=== PATIENT | male | born 1965 | race African-American/Black ===

== ENCOUNTER 2017-06-24 09:30 | Emergency (ER) | payer SELFPAY | END 2017-06-24 10:30 | disposition home or self-care (01) | LOC: ERS 09:30 | DX: J40 Bronchitis, not specified as acute or chronic (principal); I10 Essential (primary) hypertension; J44.9 Chronic obstructive pulmonary disease, unspecified; Z87.891 Personal history of nicotine dependence | CPT/HCPCS: 99283 ==

== ENCOUNTER 2017-07-27 11:48 | Emergency (ER) | payer SELFPAY | END 2017-07-27 12:54 | disposition home or self-care (01) | LOC: ERS 11:48 | DX: M79.89 Other specified soft tissue disorders (principal); J45.909 Unspecified asthma, uncomplicated; I10 Essential (primary) hypertension; Z87.891 Personal history of nicotine dependence | CPT/HCPCS: 36416; 99283 ==

== ENCOUNTER 2017-08-16 02:47 | Inpatient (IN) | payer SELFPAY ==
[2017-08-16] MEDS ORDERED: methylPREDNISolone Sod Succ/PF 125 MG/2 ML VIAL ONE (02:59)
[2017-08-16 03:37] LABS: #Eosinphils 0.1 thou/uL (0.0-0.7); #Lymphocytes 0.5 thou/uL (1.20-3.40); #Monocytes 0.7 thou/uL (0.11-0.59); #Neutrophils 8.2 thou/uL (1.40-6.50); %Basophils 0.2 % (0.0-1.0); %Eosinophils 1.1 % (0.0-10.0); %Lymphocytes 5.6 % (21.0-51.0); %Monocytes 7.2 % (0.0-10.0); Hemoglobin 14.2 g/dL (14.0-18.0); Mean Corpuscular HGB CONC 32.3 g/dL (32.0-36.0); Mean Corpuscular Hemoglobin 28.2 pg (27.0-31.0); Mean Corpuscular Volume 87.3 fl (80.0-94.0); Mean Platelet Volume 6.4 fL (7.4-10.4); Platelet Count 248 thou/uL (130-400); RBC Distribution Width 13.1 % (11.5-14.5); Red Blood Cell (RBC) Count 5.04 mill/uL (4.70-6.10); White Blood Cell (WBC) Count 9.5 thou/uL (4.8-10.8)
[2017-08-16] MEDS ORDERED: Magnesium Sulfate 2 GM/100 ML BAG ONE (03:51)
[2017-08-16 04:00] LABS: ALT (SGPT) 53 U/L (8-55); AST (SGOT) 25 U/L (5-34); Albumin 4.4 g/dL (3.5-5.0); Alkaline Phosphatase 106 U/L (40-150); Anion Gap 16 mmol/L (10-20); BUN (Urea Nitrogen) 6 mg/dL (8.4-25.7); Bilirubin, Total 0.4 mg/dL (0.2-1.2); CK (CPK) 274 U/L (30-200); Calc. Creatinine Clearance 0 mL/min (70-130); Calcium 10.1 mg/dL (7.8-10.44); Carbon Dioxide 25 mmol/L (22-29); Chloride 101 mmol/L (98-107); Estimated GFR-MDRD Greater than 90; Globulin 3.2 g/dL (2.4-3.5); Glucose 134 mg/dL (70-105); Potassium 3.8 mmol/L (3.5-5.1); Protein, Total 7.6 g/dL (6.0-8.3); Sodium 138 mmol/L (136-145)
[2017-08-16 04:04] LABS: CKMB 4.9 ng/mL (0-6.6); Troponin I Less than 0.010 ng/mL (< 0.028)
[2017-08-16] MEDS ORDERED: cefTRIAXone\\ROCEPHIN 2 GM in Sodium Chloride 0.9% 100 ML IVPB SCH (04:30)
[2017-08-16] MEDS ORDERED: Azithromycin 500 MG in Sodium Chloride 0.9% 250 ML 250 ML IVPB SCH (04:30)
[2017-08-16] MEDS ORDERED: Ondansetron HCl/PF 4 MG/2 ML Vial IVP PRN (08:25)
[2017-08-16] MEDS ORDERED: Acetaminophen 325 MG TAB PO PRN (08:25)
[2017-08-16] MEDS ORDERED: Lorazepam 2 MG/ML VIAL SLOW IVP PRN (08:25)
[2017-08-16] MEDS ORDERED: Benzonatate 100 MG CAP PO PRN (08:25)
[2017-08-16] MEDS ORDERED: Midazolam HCl 5 mg/ml Vial ONE (08:33)
[2017-08-16] MEDS ORDERED: Rocuronium Bromide 50 MG/5 ML VIAL ONE (08:33)
[2017-08-16] MEDS ORDERED: CCU Electrolyte Replacement 1 EACH FS ONE (08:59)
[2017-08-16] MEDS ORDERED: Sedation Protocol FS ONE (08:59)
[2017-08-16 09:07] LABS: Base Excess (BEa) -4.2 mEq/L (0 (+/-) 2.5); Calcium, Ionized 1.2 mmol/L (1.12-1.30); Hematocrit-ABG 43.8 % (42.0-52.0); Hemoglobin (Hb) 13.2 g/dL (14.0-18.0); O2 Tension (PaO2) 309.3 mmHg (80.0-100.0)
--- NOTE | 2017-08-16 09:07 | RAD ---
FRONTAL VIEW CHEST: COMPARISON: 09/23/16. INDICATION: Dyspnea. Asthma exacerbation. FINDINGS: There is a left perihilar consolidation with bilateral interstitial prominence and slight hyperinflat ion of the lungs. Cardiac silhouette is normal in size. There are numerous extrinsic artifacts limi ting detail. IMPRESSION: Evidence of left perihilar pneumonia. Followup to resolution is recommended. POS: [facility]
[2017-08-16 09:12] LABS: CO2 Tension 66.1 mmHg (35.0-45.0); Puncture Site L.R.
[2017-08-16 09:13] LABS: ALV-art Gradient 319.075 (0-20)
[2017-08-16] MEDS ORDERED: Magnesium 2 GM/NS 0.9% 100 ML 2 GM in Premix Bag 1 BAG IVPB PRN (09:17)
[2017-08-16] MEDS ORDERED: Potassium Phosphate 15 MMOL in Sodium Chloride 0.9% 250 ML 250 ML IV PRN (09:17)
[2017-08-16] MEDS ORDERED: Potassium Phosphate 9 MMOL in Sodium Chloride 0.9% 100 ML IVPB PRN (09:17)
[2017-08-16] MEDS ORDERED: Potassium Chloride 20 MEQ TAB PO PRN (09:17)
[2017-08-16] MEDS ORDERED: Potassium Chloride 40 MEQ in Premix Bag 1 BAG IVPB PRN (09:17)
[2017-08-16] MEDS ORDERED: CCU ELECTROLYTE REPLACEMENT PROTOCOL FS PRN (09:17)
[2017-08-16] MEDS ORDERED: fentaNYL Citrate/PF 2,000 MCG in Sodium Chloride 0.9% 60 ML IV SCH (09:17)
[2017-08-16] MEDS ORDERED: Potassium Phosphate 12 MMOL in Sodium Chloride 0.9% 250 ML 250 ML IV PRN (09:17)
[2017-08-16] MEDS ORDERED: Potassium Chloride 40 MEQ in Sodium Chloride 0.9% 250 ML 250 ML IVPB PRN (09:17)
[2017-08-16] MEDS ORDERED: Magnesium Oxide 400 MG TAB PO PRN ×2 (09:17)
[2017-08-16] MEDS ORDERED: Propofol 1,000 MG/100 ML VIAL IV ONE ×2 (09:20→11:24)
--- NOTE | 2017-08-16 09:36 | HP ---
PRIMARY CARE PHYSICIAN: Dr. Mcintosh at [facility]. CHIEF COMPLAINT: Shortness of breath. HISTORY OF PRESENT ILLNESS: The history of present illness was taken almost entirely from the patien destinee's who is at the bedside as the patient is so short of breath. He can barely even say one word . She says that he began having shortness of breath about 2 days ago on Monday, he began wheezing an d coughing up phlegm. She says he was not paying attention to the color of the phlegm. She had take n him to see their primary care physician who treated him and apparently treated him and sent him rupal e. Since then, he has gotten more progressively short of breath. There have been no fevers or chill s. No nausea or vomiting or chest pain, but when he came to the ER, he was found to be extremely dys pneic and hypoxic with an O2 sat of 83% on room air. He has gotten nebulizer treatments, antibiotics , and magnesium as well as IV steroids and has been placed on BiPAP and currently on BiPAP he appears very uncomfortable and has excessive work of breathing. REVIEW OF SYSTEMS: Unobtainable as the patient is in too much discomfort with shortness of breath to reply. PAST MEDICAL HISTORY: Significant for chronic obstructive pulmonary disease with chronic respiratory failure, asthma, hypertension, history of noncompliance. PAST SURGICAL HISTORY: He has had finger surgery on the right. ALLERGIES: No known drug allergies. SOCIAL HISTORY: He is . He continues to smoke according to his , occasionally drinks. Jack taylor wishes to be a FULL CODE. FAMILY HISTORY: Significant for diabetes mellitus in his brother as well as cancer. MEDICATIONS: Include albuterol inhaler. He had been prescribed Dulera, but says it was too expensiv e for him to pay for it. PHYSICAL EXAMINATION: GENERAL: He is oriented, but extremely short of breath. VITAL SIGNS: Blood pressure is ranging from 140s-170s systolic, heart rate is in the 115 range, resp iratory rate of 22. He is afebrile. HEENT: His pupils are equal, round, and reactive. Extraocular muscles are intact. His sclerae are anicteric. Throat no erythema, no exudates. NECK: No adenopathy. LUNGS: He has got bilateral wheezing and extremely tight wheezing, very poor air movement. CARDIOVASCULAR: He has a normal S1 and S2. I do not appreciate an S3 or S4. He is tachycardic. No murmurs appreciated. ABDOMEN: Soft, nontender, nondistended. Positive for bowel sounds. No rebound or guarding. EXTREMITIES: There is no edema. NEUROLOGIC: Appears grossly intact. LABORATORY DATA: Sodium 138, potassium 3.8, chloride is 101, CO2 is 25, BUN is 6, creatinine 0.65, g lucose is 134. Lactic acid is 3.8, creatinine kinase 274. White blood cell count 9.5, hemoglobin 14 .2, hematocrit is 44, and platelet count is 248. ASSESSMENT AND PLAN: This is a 52-year-old gentleman that presents with acute on chronic respiratory failure with hypoxemia. He is currently on bilevel positive airway pressure. He does not appear to be comfortable currently. Therefore, we will get a stat ABG as well as give him a DuoNeb now. I headley ve spoken with Dr. Moy on the phone, who plans to see him shortly. We will continue DuoNebs, wicho roids, and IV antibiotics empirically for COPD exacerbation. Place him on deep venous thrombosis and gastrointestinal prophylaxis and monitor him closely. If he does not turn the corner soon, I suspec t that he may require mechanical ventilation.
--- NOTE | 2017-08-16 10:13 | RAD ---
CHEST 1 VIEW: Date: 08/16/17 HISTORY: Dyspnea. Chest pain. COMPARISON: Earlier exam same date. FINDINGS: Cardiac silhouette is unremarkable. Pulmonary vasculature is upper limits of normal. Left perihilar i nfiltrate is less dense than on the previous exam. Tip of endotracheal catheter projects over the thoracic inlet. Nasogastric tube descends to the abdom en. IMPRESSION: 1. Endotracheal catheter and nasogastric tube are in good radiographic position. 2. Interval decrease in left perihilar infiltrate. POS: [facility]
--- NOTE | 2017-08-16 10:29 | CON ---
DATE OF CONSULTATION: 08/16/2017 CONSULTING PHYSICIAN: Dr. Mercedes. REASON FOR CONSULTATION: Acute respiratory failure related to asthma exacerbation. Following [facility] 45 minutes critical care time. HISTORY OF PRESENT ILLNESS: Mr. Lizarraga is a 52-year-old male with a history of asthma. He has had inc reasing symptoms over the last 1 week. He has been out of his usual home medications, which were Dul era and albuterol. He has been unable to afford Dulera and has been occasionally coming to the [facility] for samples of the medication. His family states he is continuing to smoke tobacco and marijuana. PAST MEDICAL HISTORY: 1. Severe COPD/asthma. 2. Status asthmaticus. 3. Hypertension. 4. Medical noncompliance. PAST SURGICAL HISTORY: Right finger surgery. MEDICATIONS PRIOR TO ADMISSION: See above. ALLERGIES: None. FAMILY MEDICAL HISTORY: Remarkable for colon cancer. SOCIAL HISTORY: He has a long smoking history and a history of marijuana use. REVIEW OF SYSTEMS: Cannot be obtained as the patient is on mechanical ventilation. PHYSICAL EXAMINATION: VITAL SIGNS: Heart rate is around 115, blood pressure 170/90, respiratory rate 14. GENERAL: This patient was in profound respiratory distress when I entered into the room. He had aud ible expiratory wheezing. He cannot talk, because he was so dyspneic. HEENT EXAM: Pupils react, sclerae anicteric. Oropharynx dry. NECK: No JVD. LUNGS: Diffuse expiratory wheezing bilaterally with accessory muscle use of the neck and abdomen. CARDIOVASCULAR: S1, S2 tachycardic. No murmur. ABDOMEN: Soft, protuberant. Normoactive bowel sounds. EXTREMITIES: No clubbing, cyanosis, or edema. NEUROLOGIC EXAM: Moves all 4 extremities. LABORATORY AND X-RAY FINDINGS: His flu swab was negative. White blood cell count 9.5, hematocrit 44 , platelet count 248. Sodium 130, potassium 3.8, chloride 101, CO2 of 25, BUN 6, creatinine 0.6, glu cose 134. Lactate 3.8. Chest x-ray showed hyperinflation without mass, effusion, or infiltrate. Hi s peak pressures on the ventilator are running around 68, plateau pressure is around 25. ASSESSMENT: 1. Status asthmaticus. 2. Acute respiratory failure, requiring mechanical ventilation. PLAN: 1. The patient necessitated emergent endotracheal intubation. This was performed by Dr. Arlene Nunez with my direct supervision on first attempt with 7.5 endotracheal tube with GlideScope visualization. The patient was given 50 mg, Zemuron 2 mg of Versed prior to the intubation. End-tidal CO2 turned yellow and placement was also confirmed by auscultation and x-ray. 2. Patient will receive IV steroids, aggressive nebulization therapy, and antibiotics. 3. The patient will be kept heavily sedated and paralyzed to facilitate compliance, mechanical venti lation. 4. Mechanical ventilation orders in the computer. 5. Deep venous prophylaxis with Lovenox. 6. Gastrointestinal prophylaxis with Protonix or Pepcid.
[2017-08-16 11:48] LABS: Bilirubin Negative (Negative); Blood, Urine Negative (Negative); Clarity CLEAR (Clear); Glucose, Urine (Dipstick) 250 mg/dL (Negative); Leukocyte Negative (Negative); Nitrite Negative (Negative); Protein, Urine (Dipstick) Negative (Neg-Trace); Specific Gravity, Urine 1.013 (1.002-1.036); Urobilinogen 0.2 mg/dL (0.2-1.0)
[2017-08-16] MEDS: Lorazepam 2 MG/ML VIAL SLOW IVP PRN ×3 (12:00→19:30)
[2017-08-16] MEDS: Docusate 100 MG CAP PO SCH ×2 (13:04→20:25)
[2017-08-16] MEDS: Nicotine 14 MG PATCH TD SCH (13:22)
[2017-08-16] MEDS: Enoxaparin Sodium 40 MG/0.4 ML SYRINGE SC SCH (13:22)
[2017-08-16] MEDS: Famotidine/PF 20 mg/2ml Vial SLOW IVP SCH ×2 (13:24→20:25)
[2017-08-16] MEDS: Propofol 1,000 MG/100 ML VIAL IV PRN ×3 (14:06→22:35)
[2017-08-16] MEDS: Morphine 2 MG/ML SYRINGE SLOW IVP PRN ×2 (14:18→22:35)
[2017-08-16] MEDS: Sodium Chloride 0.9% 1,000 ML IV SCH ×2 (16:47→17:46)
[2017-08-17] MEDS: Sodium Chloride 0.9% 1,000 ML IV SCH ×4 (00:08→23:35)
[2017-08-17] MEDS: Lorazepam 2 MG/ML VIAL SLOW IVP PRN ×3 (01:27→20:06)
[2017-08-17] MEDS: Propofol 1,000 MG/100 ML VIAL IV PRN ×5 (02:27→20:06)
[2017-08-17] MEDS: Azithromycin 500 MG in Sodium Chloride 0.9% 250 ML 250 ML IVPB SCH (05:02)
[2017-08-17] MEDS: cefTRIAXone\\ROCEPHIN 2 GM in Sodium Chloride 0.9% 100 ML IVPB SCH (05:02)
[2017-08-17 06:04] LABS: #Lymphocytes 0.4 thou/uL (1.20-3.40); #Monocytes 0.4 thou/uL (0.11-0.59); #Neutrophils 6.1 thou/uL (1.40-6.50); %Basophils 0.6 % (0.0-1.0); %Eosinophils 0.3 % (0.0-10.0); %Lymphocytes 5.5 % (21.0-51.0); %Monocytes 5.6 % (0.0-10.0); %Neutrophils 87.9 % (42.0-75.0); Hemoglobin 11.4 g/dL (14.0-18.0); Mean Corpuscular HGB CONC 30.4 g/dL (32.0-36.0); Mean Corpuscular Hemoglobin 27.4 pg (27.0-31.0); Mean Corpuscular Volume 90.2 fl (80.0-94.0); Mean Platelet Volume 6.6 fL (7.4-10.4); Platelet Count 202 thou/uL (130-400); RBC Distribution Width 13.2 % (11.5-14.5); Red Blood Cell (RBC) Count 4.15 mill/uL (4.70-6.10); White Blood Cell (WBC) Count 6.9 thou/uL (4.8-10.8)
[2017-08-17 06:27] LABS: Anion Gap 9 mmol/L (10-20); BUN (Urea Nitrogen) 10 mg/dL (8.4-25.7); Calc. Creatinine Clearance 172 mL/min (70-130); Calcium 8.3 mg/dL (7.8-10.44); Carbon Dioxide 28 mmol/L (22-29); Chloride 107 mmol/L (98-107); Estimated GFR-MDRD Greater than 90; Glucose 140 mg/dL (70-105); Potassium 4.5 mmol/L (3.5-5.1); Sodium 139 mmol/L (136-145)
[2017-08-17 07:02] LABS: Actual Bicarbonate (HCO3a) 30.5 mEq/L (22-26); Base Excess (BEa) 1.1 mEq/L (0 (+/-) 2.5); Calcium, Ionized 1.2 mmol/L (1.12-1.30); Hematocrit-ABG 38.8 % (42.0-52.0); Hemoglobin (Hb) 11.4 g/dL (14.0-18.0); O2 Tension (PaO2) 83.7 mmHg (80.0-100.0)
[2017-08-17 07:05] LABS: CO2 Tension 76.6 mmHg (35.0-45.0); Puncture Site RRA; pH, Arterial 7.22 (7.35-7.45)
[2017-08-17] MEDS: Nicotine 14 MG PATCH TD SCH (09:12)
[2017-08-17] MEDS: Famotidine/PF 20 mg/2ml Vial SLOW IVP SCH ×2 (09:13→20:06)
[2017-08-17] MEDS: Docusate 100 MG CAP PO SCH ×2 (09:13→20:06)
[2017-08-17] MEDS: Enoxaparin Sodium 40 MG/0.4 ML SYRINGE SC SCH (09:13)
--- NOTE | 2017-08-17 10:57 | PDOC.PN ---
- Subjective Encounter Start Date: 08/17/17 Encounter Start Time: 07:15 Subjective: on vent and sedated -: at bedside - Objective Resuscitation Status: Resuscitation Status FULL:Full Resuscitation MAR Reviewed: Yes Vital Signs & Weight: Vital Signs (12 hours) Temp Pulse Resp BP Pulse Ox 08/17/17 10:03 107 H 105/57 L 08/17/17 10:00 14 08/17/17 08:13 93 107/66 08/17/17 08:00 99.3 F 93 18 100 08/17/17 07:00 99.3 F 08/17/17 06:00 14 08/17/17 04:00 98.6 F 14 08/17/17 03:12 96 14 100 08/17/17 02:00 14 08/17/17 00:39 99 17 96 08/17/17 00:00 99.1 F 14 Most Recent Monitor Data Heart Rate from ECG 107 NIBP 105/57 NIBP BP-Mean 70 Respiration from ECG 14 SpO2 100 I&O: 08/16/17 08/17/17 08/18/17 06:59 06:59 06:59 Intake Total 3658 Output Total 1665 255 Balance 1992 -255 Result Diagrams: 08/17/17 05:16 08/17/17 05:16 Phys Exam - Physical Examination HEENT: PERRLA, sclera anicteric Neck: no JVD, supple Respiratory: no rales, wheezing present Cardiovascular: RRR, no rub Gastrointestinal: soft, non-tender, positive bowel sounds large inguinal hernia Musculoskeletal: no edema, pulses present Neurological: non-focal Dx/Plan (1) Acute respiratory failure with hypoxia and hypercapnia Code(s): J96.01 - ACUTE RESPIRATORY FAILURE WITH HYPOXIA; J96.02 - ACUTE RESPIRATORY FAILURE WITH HYPERCAPNIA Status: Acute (2) Status asthmaticus Code(s): J45.902 - UNSPECIFIED ASTHMA WITH STATUS ASTHMATICUS Status: Acute Qualifiers: Asthma severity: unspecified severity (3) HTN (hypertension) Code(s): I10 - ESSENTIAL (PRIMARY) HYPERTENSION Status: Chronic Qualifiers: Hypertension type: essential hypertension (4) Inguinal hernia Code(s): K40.90 - UNIL INGUINAL HERNIA, W/O OBST OR GANGR, NOT SPCF RECUR Status: Chronic Qualifiers: Obstruction and gangrene presence: without obstruction or gangrene Comment: its a large one, will need outpt repair once his copd stabilizes (5) Tobacco abuse Code(s): Z72.0 - TOBACCO USE Status: Chronic - Plan is still acidotic, resp rate changed to 18 this am -: repeat blood gas in 3 hrs -: is still wheezing -: d/w at bedside -: nebs, high dose steroids iv, empiric ceftriaxone and zithromax * . Review of Systems - Medications/Allergies Allergies/Adverse Reactions: Allergies Allergy/AdvReac Type Severity Reaction Status Date / Time No Known Drug Allergies Allergy Verified 09/21/16 02:50 Medications: Current Medications Acetaminophen (Tylenol) 650 mg PO Q4H PRN PRN Reason: Headache/Fever or Pain Albuterol/Ipratropium (Duoneb) 3 ml NEB [id number] [facility] Last Admin: 08/17/17 10:07 Dose: 3 ml Benzonatate (Tessalon) 100 mg PO Q4H PRN PRN Reason: Cough Docusate Sodium (Colace) 100 mg PO BID [facility] Last Admin: 08/17/17 09:13 Dose: 100 mg Enoxaparin Sodium (Lovenox) 40 mg SC 0900 [facility] Last Admin: 08/17/17 09:13 Dose: 40 mg Famotidine (Pepcid) 20 mg SLOW IVP Q12HR [facility] Last Admin: 08/17/17 09:13 Dose: 20 mg Hydralazine HCl (Apresoline) 10 mg SLOW IVP Q4H PRN PRN Reason: Systolic BP > 180 Azithromycin 500 mg/ Sodium (Chloride) 250 mls @ 250 mls/hr IVPB 0600 [facility] Last Admin: 08/17/17 05:02 Dose: 250 mls Ceftriaxone Sodium 2 gm/ (Sodium Chloride) 100 mls @ 200 mls/hr IVPB 0500 [facility] Last Admin: 08/17/17 05:02 Dose: 100 mls Potassium Chloride 40 meq/ (Sodium Chloride) 270 mls @ 135 mls/hr IVPB ASDIR PRN PRN Reason: FOR SERUM K+ 2.5 - 3.5 Potassium Chloride 40 meq/ (Device) 100 mls @ 50 mls/hr IVPB ASDIR PRN PRN Reason: FOR SERUM K+ 2.5 - 3.5 Magnesium Sulfate 1 gm/ Sodium (Chloride) 102 mls @ 102 mls/hr IV PRN PRN PRN Reason: MAG LEVEL 1.4 - 2.0 Magnesium Sulfate 2 gm/ Device 100 mls @ 100 mls/hr IVPB ASDIR PRN PRN Reason: MAGNESIUM < 1.4 Potassium Phosphate 9 mmol/ (Sodium Chloride) 103 mls @ 25.75 mls/hr IVPB ASDIR PRN PRN Reason: Phosphate 1.0-1.8 Potassium Phosphate 12 mmol/ (Sodium Chloride) 254 mls @ 63.5 mls/hr IV ASDIR PRN PRN Reason: Serum phosphate 0.5-0.9 Potassium Phosphate 15 mmol/ (Sodium Chloride) 255 mls @ 63.75 mls/hr IV ASDIR PRN PRN Reason: Serum Phos < 0.5 Fentanyl Citrate 2,000 mcg/ (Sodium Chloride) 100 mls @ 0 mls/hr IV INF DOMINIC; Per Protocol PRN Reason: Protocol Stop: 09/15/17 09:17 Fentanyl Citrate (Fentanyl Bolus) 250 mls @ 0 mls/hr IVPB PRN PRN; As Directed PRN Reason: Breakthrough pain Stop: 09/15/17 09:17 Sodium Chloride (Normal Saline 0.9%) 1,000 mls @ 150 mls/hr IV .Q6H40M [facility] Last Admin: 08/17/17 09:18 Dose: 1,000 mls Lorazepam (Ativan) 0.5 mg SLOW IVP Q4H PRN PRN Reason: Anxiety/Agitation Lorazepam (Ativan) 2 mg SLOW IVP Q2H PRN PRN Reason: Anxiety to achieve Smith 2-3 Stop: 09/15/17 09:17 Last Admin: 08/17/17 09:18 Dose: 2 mg Magnesium Oxide (Magnesium Oxide) 400 mg PO BIDPRN PRN PRN Reason: FOR SERUM MAG 1.4 - 2.0 Magnesium Oxide (Magnesium Oxide) 800 mg PO PRN PRN PRN Reason: FOR SERUM MAG < 1.4 Methylprednisolone Sodium Succinate (Solu-Medrol) 60 mg IVP Q6HR [facility] Miscellaneous Medication (Phos-Nak) 1 pkt PO TIDPRN PRN PRN Reason: FOR PHOS LEVEL 1.0 - 1.8 Miscellaneous Medication (Phos-Nak) 2 pkt PO TIDPRN PRN PRN Reason: FOR PHOS LEVEL 0.5 - 1.0 Morphine Sulfate (Morphine) 2 mg SLOW IVP Q2H PRN PRN Reason: Breakthrough pain Stop: 09/15/17 09:17 Last Admin: 08/16/17 22:35 Dose: 2 mg Nicotine (Nicoderm Patch) 14 mg TD DAILY [facility] Last Admin: 08/17/17 09:12 Dose: 14 mg Ondansetron HCl (Zofran) 4 mg IVP Q6H PRN PRN Reason: Nausea/Vomiting Potassium Chloride (K-Dur) 40 meq PO ASDIR PRN PRN Reason: FOR SERUM K+ 2.5 - 3.5 Potassium Chloride (Klor-Con) 40 meq PER TUBE ASDIR PRN PRN Reason: FOR SERUM K+ 2.5-3.5 Propofol (Diprivan) 1,000 mg IV INF PRN; Protocol PRN Reason: TO ACHIEVE SMITH SCORE 2-3 Stop: 09/15/17 09:17 Last Admin: 08/17/17 09:12 Dose: 1,000 mg Rocuronium [place] (Zemuron) 50 mg IVP Q30MIN PRN PRN Reason: Agitation Last Admin: 08/17/17 06:02 Dose: 50 mg
--- NOTE | 2017-08-17 11:11 | PRG ---
DATE OF SERVICE: 08/17/2017 Thirty-five minutes critical care time. The patient remains intubated on mechanical ventilation. He has done much better overnight. His wif e is at the bedside. PHYSICAL EXAMINATION: VITAL SIGNS: Temperature is 99.3, pulse 94, blood pressure 107/66, 24-hour intake is 3658, output 16 65. HEENT: Unremarkable. NECK: No JVD. LUNGS: Expiratory wheezing which is better than yesterday. CARDIAC: S1 and S2 regular. ABDOMEN: Soft. EXTREMITIES: No edema. LABORATORY DATA: Sodium 139, potassium 4.5, chloride 107, CO2 28, BUN 10, creatinine 0.5, glucose 14 0, pH 7.22, pCO2 76, p02 of 83 on SIMV rate 14, tidal volume 400, 5 of PEEP, pressure support 10, FIO 2 40%. White blood cell count 6.9, hematocrit 37.4, platelet count 202. Chest x-ray yesterday showed hyperinflation. ASSESSMENT: 1. Chronic obstructive pulmonary disease/asthma with exacerbation. 2. Acute respiratory failure requiring mechanical ventilation. PLAN: 1. Continue permissive hypercapnia in order to prolong expiratory time. 2. Can back off on paralytics some. 3. Continue steroids, nebulization treatments. 4. Initiate tube feeds. 5. DVT prophylaxis with Lovenox. 6. GI prophylaxis with Protonix or Pepcid.
[2017-08-18] MEDS: Propofol 1,000 MG/100 ML VIAL IV PRN ×5 (01:57→21:55)
[2017-08-18] MEDS: Lorazepam 2 MG/ML VIAL SLOW IVP PRN ×2 (03:14→13:17)
[2017-08-18] MEDS: cefTRIAXone\\ROCEPHIN 2 GM in Sodium Chloride 0.9% 100 ML IVPB SCH (05:06)
[2017-08-18] MEDS: Azithromycin 500 MG in Sodium Chloride 0.9% 250 ML 250 ML IVPB SCH (05:06)
[2017-08-18 05:12] LABS: #Lymphocytes 0.4 thou/uL (1.20-3.40); #Monocytes 0.5 thou/uL (0.11-0.59); #Neutrophils 6.6 thou/uL (1.40-6.50); %Basophils 0.1 % (0.0-1.0); %Eosinophils 0.3 % (0.0-10.0); %Neutrophils 87.7 % (42.0-75.0); Hemoglobin 10.9 g/dL (14.0-18.0); Mean Corpuscular HGB CONC 31.2 g/dL (32.0-36.0); Mean Corpuscular Volume 89.9 fl (80.0-94.0); Mean Platelet Volume 6.5 fL (7.4-10.4); Platelet Count 211 thou/uL (130-400); Red Blood Cell (RBC) Count 3.88 mill/uL (4.70-6.10); White Blood Cell (WBC) Count 7.6 thou/uL (4.8-10.8)
[2017-08-18 05:21] LABS: Anion Gap 6 mmol/L (10-20); BUN (Urea Nitrogen) 16 mg/dL (8.4-25.7); Calc. Creatinine Clearance 181 mL/min (70-130); Calcium 8.5 mg/dL (7.8-10.44); Carbon Dioxide 34 mmol/L (22-29); Chloride 108 mmol/L (98-107); Estimated GFR-MDRD Greater than 90; Glucose 174 mg/dL (70-105); Potassium 4.1 mmol/L (3.5-5.1); Sodium 144 mmol/L (136-145)
[2017-08-18 07:38] LABS: Actual Bicarbonate (HCO3a) 34.3 mEq/L (22-26); Base Excess (BEa) 6.2 mEq/L (0 (+/-) 2.5); CO2 Tension 70.9 mmHg (35.0-45.0); Calcium, Ionized 1.2 mmol/L (1.12-1.30); Hematocrit-ABG 34.1 % (42.0-52.0); Hemoglobin (Hb) 10.5 g/dL (14.0-18.0); O2 Tension (PaO2) 90.9 mmHg (80.0-100.0); Puncture Site RRA
[2017-08-18 07:39] LABS: ALV-art Gradient 103.675 (0-20)
--- NOTE | 2017-08-18 07:47 | PDOC.PULCC ---
CCU Progress Note: Subj/Obj - Subjective Date: 08/18/17 Time: 07:45 Subjective: intubated - Objective Allergies/Adverse Reactions: Allergies Allergy/AdvReac Type Severity Reaction Status Date / Time No Known Drug Allergies Allergy Verified 09/21/16 02:50 Medications: Current Medications Acetaminophen (Tylenol) 650 mg PO Q4H PRN PRN Reason: Headache/Fever or Pain Albuterol/Ipratropium (Duoneb) 3 ml NEB [id number] [facility] Last Admin: 08/18/17 02:31 Dose: 3 ml Benzonatate (Tessalon) 100 mg PO Q4H PRN PRN Reason: Cough Docusate Sodium (Colace) 100 mg PO BID [facility] Last Admin: 08/17/17 20:06 Dose: 100 mg Enoxaparin Sodium (Lovenox) 40 mg SC 0900 [facility] Last Admin: 08/17/17 09:13 Dose: 40 mg Famotidine (Pepcid) 20 mg SLOW IVP Q12HR [facility] Last Admin: 08/17/17 20:06 Dose: 20 mg Hydralazine HCl (Apresoline) 10 mg SLOW IVP Q4H PRN PRN Reason: Systolic BP > 180 Azithromycin 500 mg/ Sodium (Chloride) 250 mls @ 250 mls/hr IVPB 0600 [facility] Last Admin: 08/18/17 05:06 Dose: 250 mls Ceftriaxone Sodium 2 gm/ (Sodium Chloride) 100 mls @ 200 mls/hr IVPB 0500 [facility] Last Admin: 08/18/17 05:06 Dose: 100 mls Potassium Chloride 40 meq/ (Sodium Chloride) 270 mls @ 135 mls/hr IVPB ASDIR PRN PRN Reason: FOR SERUM K+ 2.5 - 3.5 Potassium Chloride 40 meq/ (Device) 100 mls @ 50 mls/hr IVPB ASDIR PRN PRN Reason: FOR SERUM K+ 2.5 - 3.5 Magnesium Sulfate 1 gm/ Sodium (Chloride) 102 mls @ 102 mls/hr IV PRN PRN PRN Reason: MAG LEVEL 1.4 - 2.0 Magnesium Sulfate 2 gm/ Device 100 mls @ 100 mls/hr IVPB ASDIR PRN PRN Reason: MAGNESIUM < 1.4 Potassium Phosphate 9 mmol/ (Sodium Chloride) 103 mls @ 25.75 mls/hr IVPB ASDIR PRN PRN Reason: Phosphate 1.0-1.8 Potassium Phosphate 12 mmol/ (Sodium Chloride) 254 mls @ 63.5 mls/hr IV ASDIR PRN PRN Reason: Serum phosphate 0.5-0.9 Potassium Phosphate 15 mmol/ (Sodium Chloride) 255 mls @ 63.75 mls/hr IV ASDIR PRN PRN Reason: Serum Phos < 0.5 Fentanyl Citrate 2,000 mcg/ (Sodium Chloride) 100 mls @ 0 mls/hr IV INF DOMINIC; Per Protocol PRN Reason: Protocol Stop: 09/15/17 09:17 Fentanyl Citrate (Fentanyl Bolus) 250 mls @ 0 mls/hr IVPB PRN PRN; As Directed PRN Reason: Breakthrough pain Stop: 09/15/17 09:17 Sodium Chloride (Normal Saline 0.9%) 1,000 mls @ 150 mls/hr IV .Q6H40M [facility] Last Admin: 08/17/17 23:35 Dose: 1,000 mls Lorazepam (Ativan) 0.5 mg SLOW IVP Q4H PRN PRN Reason: Anxiety/Agitation Lorazepam (Ativan) 2 mg SLOW IVP Q2H PRN PRN Reason: Anxiety to achieve Smith 2-3 Stop: 09/15/17 09:17 Last Admin: 08/18/17 03:14 Dose: 2 mg Magnesium Oxide (Magnesium Oxide) 400 mg PO BIDPRN PRN PRN Reason: FOR SERUM MAG 1.4 - 2.0 Magnesium Oxide (Magnesium Oxide) 800 mg PO PRN PRN PRN Reason: FOR SERUM MAG < 1.4 Methylprednisolone Sodium Succinate (Solu-Medrol) 60 mg IVP Q6HR [facility] Last Admin: 08/18/17 05:06 Dose: 60 mg Miscellaneous Medication (Phos-Nak) 1 pkt PO TIDPRN PRN PRN Reason: FOR PHOS LEVEL 1.0 - 1.8 Miscellaneous Medication (Phos-Nak) 2 pkt PO TIDPRN PRN PRN Reason: FOR PHOS LEVEL 0.5 - 1.0 Morphine Sulfate (Morphine) 2 mg SLOW IVP Q2H PRN PRN Reason: Breakthrough pain Stop: 09/15/17 09:17 Last Admin: 08/16/17 22:35 Dose: 2 mg Nicotine (Nicoderm Patch) 14 mg TD DAILY [facility] Last Admin: 08/17/17 09:12 Dose: 14 mg Ondansetron HCl (Zofran) 4 mg IVP Q6H PRN PRN Reason: Nausea/Vomiting Potassium Chloride (K-Dur) 40 meq PO ASDIR PRN PRN Reason: FOR SERUM K+ 2.5 - 3.5 Potassium Chloride (Klor-Con) 40 meq PER TUBE ASDIR PRN PRN Reason: FOR SERUM K+ 2.5-3.5 Propofol (Diprivan) 1,000 mg IV INF PRN; Protocol PRN Reason: TO ACHIEVE SMITH SCORE 2-3 Stop: 09/15/17 09:17 Last Admin: 08/18/17 01:57 Dose: 1,000 mg Rocuronium [place] (Zemuron) 50 mg IVP Q30MIN PRN PRN Reason: Agitation Last Admin: 08/17/17 06:02 Dose: 50 mg MAR Reviewed: Yes Vital Signs and I&O: Vital Signs Temp 99.5 F 08/18/17 04:00 Pulse 90 08/18/17 02:31 Resp 15 08/18/17 06:00 BP 157/92 H 08/17/17 18:50 Pulse Ox 100 08/18/17 02:31 Intake & Output 08/17/17 08/18/17 08/18/17 18:59 06:59 18:59 Intake Total 2085 2919 Output Total 1705 1055 Balance 380 1864 Weight 180 lb 15.992 oz Intake: Intake, IV Amount 8 9613 Azithromycin 500 mg In 250 Sodium Chloride 0.9% 250 ML 250 ml @ 250 mls/hr IVPB 0600 [facility] Rx#: [id number] Propofol 1000 mg (See 257 200 Protocol) IV INF PRN Rx#: [id number] Sodium Chloride 0.9% 1, 1798 1823 000 ml @ 150 mls/hr IV . Q6H40M [facility] Rx#:[id number] cefTRIAXone\ROCEPHIN 2 gm 100 In Sodium Chloride 0.9% 100 ml @ 200 mls/hr IVPB 0500 [facility] Rx#:[id number] Tube Feeding 486 Tube Irrigant 30 60 Output: Gastric Drainage 175 Output, [place] 1530 1055 Other: Voiding Method Indwelling Catheter Indwelling Catheter # Bowel Movements 0 0 Vent Setting: see ABG report Spontaneous Breathing Test: not done (not ready) CCU Progress Note: Exam - Physical Exam Constitutional: NAD Deviation from normal: intubated, deeply sedated HEENT: PERRLA, moist MMs, sclera anicteric Neck: no nodes, no JVD Cardiovascular: RRR Respiratory: prolonged expiratory phase, wheezes Gastrointestinal: soft, non-tender Musculoskeletal: pulses present, edema present Neurological: non-focal, normal sensation, moves all 4 limbs Lymphatic: no nodes Skin: no rash - Labs Result Diagrams: 08/18/17 04:39 08/18/17 04:39 Lab results: Laboratory Results - last 24 hr 08/18/17 08/18/17 08/18/17 04:39 04:39 07:18 WBC 7.6 RBC 3.88 L Hgb 10.9 L Hct 34.9 L MCV 89.9 MCH 28.0 MCHC 31.2 L RDW 13.0 Plt Count 211 MPV 6.5 L Neutrophils % 87.7 H Lymphocytes % 5.0 L Monocytes % 7.0 Eosinophils % 0.3 Basophils % 0.1 Neutrophils # 6.6 H Lymphocytes # 0.4 L Monocytes # 0.5 Eosinophils # 0.0 Basophils # 0.0 Specimen Type ARTERIAL Puncture Site RRA Bicarbonate Actual 34.3 H ABG pH 7.30 L ABG pCO2 70.9 H* ABG pO2 90.9 ABG O2 Sat Calc/Mian 97.0 ABG O2 Content 14.2 L ABG Base Excess 6.2 H ABG Hematocrit 34.1 L ABG Hemoglobin 10.5 L ABG Oxyhemoglobin 95.5 ABG Carboxyhemoglobin 0.9 ABG Methemoglobin 0.6 Aníbal Test POSITIVE A-a O2 Gradient 103.675 H Ionized Calcium 1.2 Mode of Support SIMV/PS Mechanical Rate 14 Inspired O2 40 Tidal Volume 500 Pressure Support 10 PEEP or CPAP 5.0 Sodium 144 146 Potassium 4.1 3.9 Chloride 108 H 104 Carbon Dioxide 34 H Anion Gap 6 L BUN 16 Creatinine 0.56 L Estimated GFR (MDRD) Greater than 90 Glucose 174 H Calcium 8.5 CCU Progress Note: A/P - Problems (1) Acute respiratory failure with hypoxia and hypercapnia Current Visit: Yes Status: Acute Code(s): J96.01 - ACUTE RESPIRATORY FAILURE WITH HYPOXIA; J96.02 - ACUTE RESPIRATORY FAILURE WITH HYPERCAPNIA (2) Status asthmaticus Current Visit: Yes Status: Acute Code(s): J45.902 - UNSPECIFIED ASTHMA WITH STATUS ASTHMATICUS Qualifiers: Asthma severity: severe Asthma persistence: persistent Qualified Code(s) : J45.52 - Severe persistent asthma with status asthmaticus - Time Spent with Patient Time: 50% of the time was spent in coordination of care (as documented) at patient's floor/unit and/or counseling patient. 35 min cc time - Plan Plan: He is not ready for weaning yet. Peak and plateau pressures have improved. Need to continue high dose steroids and q 3 nebs decrease IVF continue abx continue TF
[2017-08-18] MEDS ORDERED: Furosemide 40 MG/4 ML VIAL SLOW IVP SCH (08:00)
[2017-08-18] MEDS: Docusate 100 MG CAP PO SCH (08:06)
[2017-08-18] MEDS: Nicotine 14 MG PATCH TD SCH (08:06)
[2017-08-18] MEDS: Famotidine/PF 20 mg/2ml Vial SLOW IVP SCH ×2 (08:06→20:00)
[2017-08-18] MEDS: Enoxaparin Sodium 40 MG/0.4 ML SYRINGE SC SCH (08:06)
[2017-08-18] MEDS: Sodium Chloride 0.9% 1,000 ML IV SCH (08:21)
--- NOTE | 2017-08-18 10:07 | PDOC.PULCC ---
CCU Progress Note: Subj/Obj - Objective Allergies/Adverse Reactions: Allergies Allergy/AdvReac Type Severity Reaction Status Date / Time No Known Drug Allergies Allergy Verified 09/21/16 02:50 Medications: Current Medications Acetaminophen (Tylenol) 650 mg PO Q4H PRN PRN Reason: Headache/Fever or Pain Albuterol/Ipratropium (Duoneb) 3 ml NEB [id number] [facility] Last Admin: 08/18/17 08:23 Dose: 3 ml Benzonatate (Tessalon) 100 mg PO Q4H PRN PRN Reason: Cough Docusate Sodium (Colace) 100 mg PO BID [facility] Last Admin: 08/18/17 08:06 Dose: 100 mg Enoxaparin Sodium (Lovenox) 40 mg SC 0900 [facility] Last Admin: 08/18/17 08:06 Dose: 40 mg Famotidine (Pepcid) 20 mg SLOW IVP Q12HR [facility] Last Admin: 08/18/17 08:06 Dose: 20 mg Hydralazine HCl (Apresoline) 10 mg SLOW IVP Q4H PRN PRN Reason: Systolic BP > 180 Azithromycin 500 mg/ Sodium (Chloride) 250 mls @ 250 mls/hr IVPB 0600 [facility] Last Admin: 08/18/17 05:06 Dose: 250 mls Ceftriaxone Sodium 2 gm/ (Sodium Chloride) 100 mls @ 200 mls/hr IVPB 0500 [facility] Last Admin: 08/18/17 05:06 Dose: 100 mls Potassium Chloride 40 meq/ (Sodium Chloride) 270 mls @ 135 mls/hr IVPB ASDIR PRN PRN Reason: FOR SERUM K+ 2.5 - 3.5 Potassium Chloride 40 meq/ (Device) 100 mls @ 50 mls/hr IVPB ASDIR PRN PRN Reason: FOR SERUM K+ 2.5 - 3.5 Magnesium Sulfate 1 gm/ Sodium (Chloride) 102 mls @ 102 mls/hr IV PRN PRN PRN Reason: MAG LEVEL 1.4 - 2.0 Magnesium Sulfate 2 gm/ Device 100 mls @ 100 mls/hr IVPB ASDIR PRN PRN Reason: MAGNESIUM < 1.4 Potassium Phosphate 9 mmol/ (Sodium Chloride) 103 mls @ 25.75 mls/hr IVPB ASDIR PRN PRN Reason: Phosphate 1.0-1.8 Potassium Phosphate 12 mmol/ (Sodium Chloride) 254 mls @ 63.5 mls/hr IV ASDIR PRN PRN Reason: Serum phosphate 0.5-0.9 Potassium Phosphate 15 mmol/ (Sodium Chloride) 255 mls @ 63.75 mls/hr IV ASDIR PRN PRN Reason: Serum Phos < 0.5 Fentanyl Citrate 2,000 mcg/ (Sodium Chloride) 100 mls @ 0 mls/hr IV INF DOMINIC; Per Protocol PRN Reason: Protocol Stop: 09/15/17 09:17 Fentanyl Citrate (Fentanyl Bolus) 250 mls @ 0 mls/hr IVPB PRN PRN; As Directed PRN Reason: Breakthrough pain Stop: 09/15/17 09:17 Lorazepam (Ativan) 0.5 mg SLOW IVP Q4H PRN PRN Reason: Anxiety/Agitation Lorazepam (Ativan) 2 mg SLOW IVP Q2H PRN PRN Reason: Anxiety to achieve Smith 2-3 Stop: 09/15/17 09:17 Last Admin: 08/18/17 03:14 Dose: 2 mg Magnesium Oxide (Magnesium Oxide) 400 mg PO BIDPRN PRN PRN Reason: FOR SERUM MAG 1.4 - 2.0 Magnesium Oxide (Magnesium Oxide) 800 mg PO PRN PRN PRN Reason: FOR SERUM MAG < 1.4 Methylprednisolone Sodium Succinate (Solu-Medrol) 60 mg IVP Q6HR [facility] Last Admin: 08/18/17 05:06 Dose: 60 mg Miscellaneous Medication (Phos-Nak) 1 pkt PO TIDPRN PRN PRN Reason: FOR PHOS LEVEL 1.0 - 1.8 Miscellaneous Medication (Phos-Nak) 2 pkt PO TIDPRN PRN PRN Reason: FOR PHOS LEVEL 0.5 - 1.0 Morphine Sulfate (Morphine) 2 mg SLOW IVP Q2H PRN PRN Reason: Breakthrough pain Stop: 09/15/17 09:17 Last Admin: 08/16/17 22:35 Dose: 2 mg Nicotine (Nicoderm Patch) 14 mg TD DAILY [facility] Last Admin: 08/18/17 08:06 Dose: 14 mg Ondansetron HCl (Zofran) 4 mg IVP Q6H PRN PRN Reason: Nausea/Vomiting Potassium Chloride (K-Dur) 40 meq PO ASDIR PRN PRN Reason: FOR SERUM K+ 2.5 - 3.5 Potassium Chloride (Klor-Con) 40 meq PER TUBE ASDIR PRN PRN Reason: FOR SERUM K+ 2.5-3.5 Propofol (Diprivan) 1,000 mg IV INF PRN; Protocol PRN Reason: TO ACHIEVE SMITH SCORE 2-3 Stop: 09/15/17 09:17 Last Admin: 08/18/17 08:06 Dose: 1,000 mg Rocuronium [place] (Zemuron) 50 mg IVP Q30MIN PRN PRN Reason: Agitation Last Admin: 08/17/17 06:02 Dose: 50 mg Vital Signs and I&O: Vital Signs Temp 99.2 F 08/18/17 08:00 Pulse 88 08/18/17 08:23 Resp 14 08/18/17 08:00 BP 153/91 H 08/18/17 08:23 Pulse Ox 100 08/18/17 08:00 Intake & Output 08/17/17 08/18/17 08/18/17 18:59 06:59 18:59 Intake Total 2085 2919 Output Total 1705 1055 1850 Balance 380 1864 -1850 Weight 180 lb 15.992 oz Intake: Intake, IV Amount 2054 2373 Azithromycin 500 mg In 250 Sodium Chloride 0.9% 250 ML 250 ml @ 250 mls/hr IVPB 0600 [facility] Rx#: [id number] Propofol 1000 mg (See 257 200 Protocol) IV INF PRN Rx#: [id number] Sodium Chloride 0.9% 1, 1798 1823 000 ml @ 150 mls/hr IV . Q6H40M [facility] Rx#:[id number] cefTRIAXone\ROCEPHIN 2 gm 100 In Sodium Chloride 0.9% 100 ml @ 200 mls/hr IVPB 0500 [facility] Rx#:[id number] Tube Feeding 486 Tube Irrigant 30 60 Output: Gastric Drainage 175 Output, Patterson 1530 1055 1850 Other: Voiding Method Indwelling Catheter Indwelling Catheter Indwelling Catheter # Bowel Movements 0 0 Vent Setting: Vent Setting Vent - Assess Status Start: 08/16/17 13: 34 Freq: Q2HR Status: Active Protocol: Document 08/18/17 08:00 SMN (Rec: 08/18/17 08:57 SMN [id number]) CCU Progress Note: Exam - Labs Result Diagrams: 08/18/17 04:39 08/18/17 04:39 Lab results: Laboratory Results - last 24 hr 08/18/17 08/18/17 08/18/17 04:39 04:39 07:18 WBC 7.6 RBC 3.88 L Hgb 10.9 L Hct 34.9 L MCV 89.9 MCH 28.0 MCHC 31.2 L RDW 13.0 Plt Count 211 MPV 6.5 L Neutrophils % 87.7 H Lymphocytes % 5.0 L Monocytes % 7.0 Eosinophils % 0.3 Basophils % 0.1 Neutrophils # 6.6 H Lymphocytes # 0.4 L Monocytes # 0.5 Eosinophils # 0.0 Basophils # 0.0 Specimen Type ARTERIAL Puncture Site RRA Bicarbonate Actual 34.3 H ABG pH 7.30 L ABG pCO2 70.9 H* ABG pO2 90.9 ABG O2 Sat Calc/Mian 97.0 ABG O2 Content 14.2 L ABG Base Excess 6.2 H ABG Hematocrit 34.1 L ABG Hemoglobin 10.5 L ABG Oxyhemoglobin 95.5 ABG Carboxyhemoglobin 0.9 ABG Methemoglobin 0.6 Aníbal Test POSITIVE A-a O2 Gradient 103.675 H Ionized Calcium 1.2 Mode of Support SIMV/PS Mechanical Rate 14 Inspired O2 40 Tidal Volume 500 Pressure Support 10 PEEP or CPAP 5.0 Sodium 144 146 Potassium 4.1 3.9 Chloride 108 H 104 Carbon Dioxide 34 H Anion Gap 6 L BUN 16 Creatinine 0.56 L Estimated GFR (MDRD) Greater than 90 Glucose 174 H Calcium 8.5 CCU Progress Note: A/P - Problems (1) Acute respiratory failure with hypoxia and hypercapnia Current Visit: Yes Status: Acute Code(s): J96.01 - ACUTE RESPIRATORY FAILURE WITH HYPOXIA; J96.02 - ACUTE RESPIRATORY FAILURE WITH HYPERCAPNIA (2) Status asthmaticus Current Visit: Yes Status: Acute Code(s): J45.902 - UNSPECIFIED ASTHMA WITH STATUS ASTHMATICUS Qualifiers: Asthma severity: severe Asthma persistence: persistent Qualified Code(s) : J45.52 - Severe persistent asthma with status asthmaticus - Time Spent with Patient Time: 50% of the time was spent in coordination of care (as documented) at patient's floor/unit and/or counseling patient.
--- NOTE | 2017-08-18 10:22 | PDOC.PULCC ---
CCU Progress Note: Subj/Obj - Objective Allergies/Adverse Reactions: Allergies Allergy/AdvReac Type Severity Reaction Status Date / Time No Known Drug Allergies Allergy Verified 09/21/16 02:50 Medications: Current Medications Acetaminophen (Tylenol) 650 mg PO Q4H PRN PRN Reason: Headache/Fever or Pain Albuterol/Ipratropium (Duoneb) 3 ml NEB [id number] [facility] Last Admin: 08/18/17 10:13 Dose: 3 ml Benzonatate (Tessalon) 100 mg PO Q4H PRN PRN Reason: Cough Docusate Sodium (Colace) 100 mg PO BID [facility] Last Admin: 08/18/17 08:06 Dose: 100 mg Enoxaparin Sodium (Lovenox) 40 mg SC 0900 [facility] Last Admin: 08/18/17 08:06 Dose: 40 mg Famotidine (Pepcid) 20 mg SLOW IVP Q12HR [facility] Last Admin: 08/18/17 08:06 Dose: 20 mg Hydralazine HCl (Apresoline) 10 mg SLOW IVP Q4H PRN PRN Reason: Systolic BP > 180 Azithromycin 500 mg/ Sodium (Chloride) 250 mls @ 250 mls/hr IVPB 0600 [facility] Last Admin: 08/18/17 05:06 Dose: 250 mls Ceftriaxone Sodium 2 gm/ (Sodium Chloride) 100 mls @ 200 mls/hr IVPB 0500 [facility] Last Admin: 08/18/17 05:06 Dose: 100 mls Potassium Chloride 40 meq/ (Sodium Chloride) 270 mls @ 135 mls/hr IVPB ASDIR PRN PRN Reason: FOR SERUM K+ 2.5 - 3.5 Potassium Chloride 40 meq/ (Device) 100 mls @ 50 mls/hr IVPB ASDIR PRN PRN Reason: FOR SERUM K+ 2.5 - 3.5 Magnesium Sulfate 1 gm/ Sodium (Chloride) 102 mls @ 102 mls/hr IV PRN PRN PRN Reason: MAG LEVEL 1.4 - 2.0 Magnesium Sulfate 2 gm/ Device 100 mls @ 100 mls/hr IVPB ASDIR PRN PRN Reason: MAGNESIUM < 1.4 Potassium Phosphate 9 mmol/ (Sodium Chloride) 103 mls @ 25.75 mls/hr IVPB ASDIR PRN PRN Reason: Phosphate 1.0-1.8 Potassium Phosphate 12 mmol/ (Sodium Chloride) 254 mls @ 63.5 mls/hr IV ASDIR PRN PRN Reason: Serum phosphate 0.5-0.9 Potassium Phosphate 15 mmol/ (Sodium Chloride) 255 mls @ 63.75 mls/hr IV ASDIR PRN PRN Reason: Serum Phos < 0.5 Fentanyl Citrate 2,000 mcg/ (Sodium Chloride) 100 mls @ 0 mls/hr IV INF DOMINIC; Per Protocol PRN Reason: Protocol Stop: 09/15/17 09:17 Fentanyl Citrate (Fentanyl Bolus) 250 mls @ 0 mls/hr IVPB PRN PRN; As Directed PRN Reason: Breakthrough pain Stop: 09/15/17 09:17 Lorazepam (Ativan) 0.5 mg SLOW IVP Q4H PRN PRN Reason: Anxiety/Agitation Lorazepam (Ativan) 2 mg SLOW IVP Q2H PRN PRN Reason: Anxiety to achieve Smith 2-3 Stop: 09/15/17 09:17 Last Admin: 08/18/17 03:14 Dose: 2 mg Magnesium Oxide (Magnesium Oxide) 400 mg PO BIDPRN PRN PRN Reason: FOR SERUM MAG 1.4 - 2.0 Magnesium Oxide (Magnesium Oxide) 800 mg PO PRN PRN PRN Reason: FOR SERUM MAG < 1.4 Methylprednisolone Sodium Succinate (Solu-Medrol) 60 mg IVP Q6HR [facility] Last Admin: 08/18/17 05:06 Dose: 60 mg Miscellaneous Medication (Phos-Nak) 1 pkt PO TIDPRN PRN PRN Reason: FOR PHOS LEVEL 1.0 - 1.8 Miscellaneous Medication (Phos-Nak) 2 pkt PO TIDPRN PRN PRN Reason: FOR PHOS LEVEL 0.5 - 1.0 Morphine Sulfate (Morphine) 2 mg SLOW IVP Q2H PRN PRN Reason: Breakthrough pain Stop: 09/15/17 09:17 Last Admin: 08/16/17 22:35 Dose: 2 mg Nicotine (Nicoderm Patch) 14 mg TD DAILY [facility] Last Admin: 08/18/17 08:06 Dose: 14 mg Ondansetron HCl (Zofran) 4 mg IVP Q6H PRN PRN Reason: Nausea/Vomiting Potassium Chloride (K-Dur) 40 meq PO ASDIR PRN PRN Reason: FOR SERUM K+ 2.5 - 3.5 Potassium Chloride (Klor-Con) 40 meq PER TUBE ASDIR PRN PRN Reason: FOR SERUM K+ 2.5-3.5 Propofol (Diprivan) 1,000 mg IV INF PRN; Protocol PRN Reason: TO ACHIEVE SMITH SCORE 2-3 Stop: 09/15/17 09:17 Last Admin: 08/18/17 08:06 Dose: 1,000 mg Rocuronium [place] (Zemuron) 50 mg IVP Q30MIN PRN PRN Reason: Agitation Last Admin: 08/17/17 06:02 Dose: 50 mg Vital Signs and I&O: Vital Signs Temp 99.2 F 08/18/17 08:00 Pulse 96 08/18/17 10:13 Resp 14 08/18/17 10:00 BP 120/86 08/18/17 10:13 Pulse Ox 100 08/18/17 08:00 Intake & Output 08/17/17 08/18/17 08/18/17 18:59 06:59 18:59 Intake Total 2085 2919 Output Total 1705 1055 2235 Balance 380 1864 -2235 Weight 180 lb 15.992 oz Intake: Intake, IV Amount 2054 2373 Azithromycin 500 mg In 250 Sodium Chloride 0.9% 250 ML 250 ml @ 250 mls/hr IVPB 0600 [facility] Rx#: [id number] Propofol 1000 mg (See 257 200 Protocol) IV INF PRN Rx#: [id number] Sodium Chloride 0.9% 1, 1798 1823 000 ml @ 150 mls/hr IV . Q6H40M [facility] Rx#:[id number] cefTRIAXone\ROCEPHIN 2 gm 100 In Sodium Chloride 0.9% 100 ml @ 200 mls/hr IVPB 0500 [facility] Rx#:[id number] Tube Feeding 486 Tube Irrigant 30 60 Output: Gastric Drainage 175 Output, Patterson 1530 1055 2235 Other: Voiding Method Indwelling Catheter Indwelling Catheter Indwelling Catheter # Bowel Movements 0 0 Vent Setting: Vent Setting Vent - Assess Status Start: 08/16/17 13: 34 Freq: Q2HR Status: Active Protocol: Document 08/18/17 08:00 SMN (Rec: 08/18/17 08:57 SMN [id number]) CCU Progress Note: Exam - Labs Result Diagrams: 08/18/17 04:39 08/18/17 04:39 Lab results: Laboratory Results - last 24 hr 08/18/17 08/18/17 08/18/17 04:39 04:39 07:18 WBC 7.6 RBC 3.88 L Hgb 10.9 L Hct 34.9 L MCV 89.9 MCH 28.0 MCHC 31.2 L RDW 13.0 Plt Count 211 MPV 6.5 L Neutrophils % 87.7 H Lymphocytes % 5.0 L Monocytes % 7.0 Eosinophils % 0.3 Basophils % 0.1 Neutrophils # 6.6 H Lymphocytes # 0.4 L Monocytes # 0.5 Eosinophils # 0.0 Basophils # 0.0 Specimen Type ARTERIAL Puncture Site RRA Bicarbonate Actual 34.3 H ABG pH 7.30 L ABG pCO2 70.9 H* ABG pO2 90.9 ABG O2 Sat Calc/Mian 97.0 ABG O2 Content 14.2 L ABG Base Excess 6.2 H ABG Hematocrit 34.1 L ABG Hemoglobin 10.5 L ABG Oxyhemoglobin 95.5 ABG Carboxyhemoglobin 0.9 ABG Methemoglobin 0.6 Aníbal Test POSITIVE A-a O2 Gradient 103.675 H Ionized Calcium 1.2 Mode of Support SIMV/PS Mechanical Rate 14 Inspired O2 40 Tidal Volume 500 Pressure Support 10 PEEP or CPAP 5.0 Sodium 144 146 Potassium 4.1 3.9 Chloride 108 H 104 Carbon Dioxide 34 H Anion Gap 6 L BUN 16 Creatinine 0.56 L Estimated GFR (MDRD) Greater than 90 Glucose 174 H Calcium 8.5 CCU Progress Note: A/P - Problems (1) Acute respiratory failure with hypoxia and hypercapnia Current Visit: Yes Status: Acute Code(s): J96.01 - ACUTE RESPIRATORY FAILURE WITH HYPOXIA; J96.02 - ACUTE RESPIRATORY FAILURE WITH HYPERCAPNIA (2) Status asthmaticus Current Visit: Yes Status: Acute Code(s): J45.902 - UNSPECIFIED ASTHMA WITH STATUS ASTHMATICUS Qualifiers: Asthma severity: severe Asthma persistence: persistent Qualified Code(s) : J45.52 - Severe persistent asthma with status asthmaticus - Time Spent with Patient Time: 50% of the time was spent in coordination of care (as documented) at patient's floor/unit and/or counseling patient.
--- NOTE | 2017-08-18 13:06 | PDOC.PN ---
- Subjective Encounter Start Date: 08/18/17 Encounter Start Time: 07:35 Subjective: is on vent and sedated -: at bedside - Objective Resuscitation Status: Resuscitation Status FULL:Full Resuscitation MAR Reviewed: Yes Vital Signs & Weight: Vital Signs (12 hours) Temp Pulse Resp BP Pulse Ox 08/18/17 12:00 99.1 F 14 08/18/17 10:13 96 120/86 08/18/17 10:00 14 08/18/17 08:23 88 153/91 H 08/18/17 08:00 99.2 F 88 14 100 08/18/17 07:00 99.2 F 08/18/17 06:00 15 08/18/17 04:00 99.5 F 15 08/18/17 02:31 90 14 100 08/18/17 02:00 16 Weight Admit Weight 180 lb Weight 180 lb 15.992 oz Most Recent Monitor Data Heart Rate from ECG 95 NIBP 134/66 NIBP BP-Mean 86 Respiration from ECG 14 SpO2 100 I&O: 08/17/17 08/18/17 08/19/17 06:59 06:59 06:59 Intake Total 3658 5004 Output Total 1665 2760 2785 Balance 1992 4634 -4938 Result Diagrams: 08/18/17 04:39 08/18/17 04:39 Phys Exam - Physical Examination HEENT: PERRLA, moist MMs Neck: no JVD, supple Respiratory: no rales, wheezing present Cardiovascular: RRR, no significant murmur Gastrointestinal: soft, non-tender, positive bowel sounds large ing hernia+++ Musculoskeletal: pulses present, edema present Neurological: non-focal, moves all 4 limbs Dx/Plan (1) Acute respiratory failure with hypoxia and hypercapnia Code(s): J96.01 - ACUTE RESPIRATORY FAILURE WITH HYPOXIA; J96.02 - ACUTE RESPIRATORY FAILURE WITH HYPERCAPNIA Status: Acute (2) Status asthmaticus Code(s): J45.902 - UNSPECIFIED ASTHMA WITH STATUS ASTHMATICUS Status: Acute Qualifiers: Asthma severity: severe Asthma persistence: persistent Qualified Code(s) : J45.52 - Severe persistent asthma with status asthmaticus (3) HTN (hypertension) Code(s): I10 - ESSENTIAL (PRIMARY) HYPERTENSION Status: Chronic Qualifiers: Hypertension type: essential hypertension (4) Inguinal hernia Code(s): K40.90 - UNIL INGUINAL HERNIA, W/O OBST OR GANGR, NOT SPCF RECUR Status: Chronic Qualifiers: Obstruction and gangrene presence: without obstruction or gangrene Comment: large, will need outpt repair once his copd stabilizes (5) Tobacco abuse Code(s): Z72.0 - TOBACCO USE Status: Chronic - Plan is on ceftriaxone and zithromax -: nebs, high dose steroids 60mg q6h -: weaning per pulm advice, still wheezing with acidosis -: has severe exacerbation -: d/w at bedside * . Review of Systems - Medications/Allergies Allergies/Adverse Reactions: Allergies Allergy/AdvReac Type Severity Reaction Status Date / Time No Known Drug Allergies Allergy Verified 09/21/16 02:50 Medications: Current Medications Acetaminophen (Tylenol) 650 mg PO Q4H PRN PRN Reason: Headache/Fever or Pain Albuterol/Ipratropium (Duoneb) 3 ml NEB [id number] [facility] Last Admin: 08/18/17 10:13 Dose: 3 ml Benzonatate (Tessalon) 100 mg PO Q4H PRN PRN Reason: Cough Docusate Sodium (Colace) 100 mg PO BID [facility] Last Admin: 08/18/17 08:06 Dose: 100 mg Enoxaparin Sodium (Lovenox) 40 mg SC 0900 [facility] Last Admin: 08/18/17 08:06 Dose: 40 mg Famotidine (Pepcid) 20 mg SLOW IVP Q12HR [facility] Last Admin: 08/18/17 08:06 Dose: 20 mg Hydralazine HCl (Apresoline) 10 mg SLOW IVP Q4H PRN PRN Reason: Systolic BP > 180 Azithromycin 500 mg/ Sodium (Chloride) 250 mls @ 250 mls/hr IVPB 0600 [facility] Last Admin: 08/18/17 05:06 Dose: 250 mls Ceftriaxone Sodium 2 gm/ (Sodium Chloride) 100 mls @ 200 mls/hr IVPB 0500 [facility] Last Admin: 08/18/17 05:06 Dose: 100 mls Potassium Chloride 40 meq/ (Sodium Chloride) 270 mls @ 135 mls/hr IVPB ASDIR PRN PRN Reason: FOR SERUM K+ 2.5 - 3.5 Potassium Chloride 40 meq/ (Device) 100 mls @ 50 mls/hr IVPB ASDIR PRN PRN Reason: FOR SERUM K+ 2.5 - 3.5 Magnesium Sulfate 1 gm/ Sodium (Chloride) 102 mls @ 102 mls/hr IV PRN PRN PRN Reason: MAG LEVEL 1.4 - 2.0 Magnesium Sulfate 2 gm/ Device 100 mls @ 100 mls/hr IVPB ASDIR PRN PRN Reason: MAGNESIUM < 1.4 Potassium Phosphate 9 mmol/ (Sodium Chloride) 103 mls @ 25.75 mls/hr IVPB ASDIR PRN PRN Reason: Phosphate 1.0-1.8 Potassium Phosphate 12 mmol/ (Sodium Chloride) 254 mls @ 63.5 mls/hr IV ASDIR PRN PRN Reason: Serum phosphate 0.5-0.9 Potassium Phosphate 15 mmol/ (Sodium Chloride) 255 mls @ 63.75 mls/hr IV ASDIR PRN PRN Reason: Serum Phos < 0.5 Fentanyl Citrate 2,000 mcg/ (Sodium Chloride) 100 mls @ 0 mls/hr IV INF DOMINIC; Per Protocol PRN Reason: Protocol Stop: 09/15/17 09:17 Fentanyl Citrate (Fentanyl Bolus) 250 mls @ 0 mls/hr IVPB PRN PRN; As Directed PRN Reason: Breakthrough pain Stop: 09/15/17 09:17 Lorazepam (Ativan) 0.5 mg SLOW IVP Q4H PRN PRN Reason: Anxiety/Agitation Lorazepam (Ativan) 2 mg SLOW IVP Q2H PRN PRN Reason: Anxiety to achieve Smith 2-3 Stop: 09/15/17 09:17 Last Admin: 08/18/17 03:14 Dose: 2 mg Magnesium Oxide (Magnesium Oxide) 400 mg PO BIDPRN PRN PRN Reason: FOR SERUM MAG 1.4 - 2.0 Magnesium Oxide (Magnesium Oxide) 800 mg PO PRN PRN PRN Reason: FOR SERUM MAG < 1.4 Methylprednisolone Sodium Succinate (Solu-Medrol) 60 mg IVP Q6HR [facility] Last Admin: 08/18/17 11:45 Dose: 60 mg Miscellaneous Medication (Phos-Nak) 1 pkt PO TIDPRN PRN PRN Reason: FOR PHOS LEVEL 1.0 - 1.8 Miscellaneous Medication (Phos-Nak) 2 pkt PO TIDPRN PRN PRN Reason: FOR PHOS LEVEL 0.5 - 1.0 Morphine Sulfate (Morphine) 2 mg SLOW IVP Q2H PRN PRN Reason: Breakthrough pain Stop: 09/15/17 09:17 Last Admin: 08/16/17 22:35 Dose: 2 mg Nicotine (Nicoderm Patch) 14 mg TD DAILY [facility] Last Admin: 08/18/17 08:06 Dose: 14 mg Ondansetron HCl (Zofran) 4 mg IVP Q6H PRN PRN Reason: Nausea/Vomiting Potassium Chloride (K-Dur) 40 meq PO ASDIR PRN PRN Reason: FOR SERUM K+ 2.5 - 3.5 Potassium Chloride (Klor-Con) 40 meq PER TUBE ASDIR PRN PRN Reason: FOR SERUM K+ 2.5-3.5 Propofol (Diprivan) 1,000 mg IV INF PRN; Protocol PRN Reason: TO ACHIEVE SMITH SCORE 2-3 Stop: 09/15/17 09:17 Last Admin: 08/18/17 11:45 Dose: 1,000 mg Rocuronium [place] (Zemuron) 50 mg IVP Q30MIN PRN PRN Reason: Agitation Last Admin: 08/17/17 06:02 Dose: 50 mg
[2017-08-18] MEDS: Docusate Sodium 100 MG/10 ML UDCUP PER TUBE SCH (20:00)
[2017-08-19] MEDS: Propofol 1,000 MG/100 ML VIAL IV PRN ×3 (02:21→22:02)
[2017-08-19] MEDS: cefTRIAXone\\ROCEPHIN 2 GM in Sodium Chloride 0.9% 100 ML IVPB SCH (04:25)
[2017-08-19] MEDS: Azithromycin 500 MG in Sodium Chloride 0.9% 250 ML 250 ML IVPB SCH (05:36)
[2017-08-19 05:44] LABS: #Lymphocytes 0.4 thou/uL (1.20-3.40); #Monocytes 0.4 thou/uL (0.11-0.59); #Neutrophils 4.6 thou/uL (1.40-6.50); %Eosinophils 0.4 % (0.0-10.0); %Lymphocytes 8.1 % (21.0-51.0); %Monocytes 7.1 % (0.0-10.0); %Neutrophils 84.4 % (42.0-75.0); Hemoglobin 10.8 g/dL (14.0-18.0); Mean Corpuscular HGB CONC 30.9 g/dL (32.0-36.0); Mean Corpuscular Hemoglobin 27.9 pg (27.0-31.0); Mean Corpuscular Volume 90.1 fl (80.0-94.0); Mean Platelet Volume 6.5 fL (7.4-10.4); Platelet Count 207 thou/uL (130-400); RBC Distribution Width 13.1 % (11.5-14.5); Red Blood Cell (RBC) Count 3.88 mill/uL (4.70-6.10); White Blood Cell (WBC) Count 5.4 thou/uL (4.8-10.8)
[2017-08-19 06:03] LABS: BUN (Urea Nitrogen) 22 mg/dL (8.4-25.7); Calc. Creatinine Clearance 188 mL/min (70-130); Estimated GFR-MDRD Greater than 90; Glucose 185 mg/dL (70-105)
[2017-08-19 06:12] LABS: Anion Gap 10 mmol/L (10-20); Carbon Dioxide 38 mmol/L (22-29); Chloride 104 mmol/L (98-107); Potassium 3.9 mmol/L (3.5-5.1); Sodium 148 mmol/L (136-145)
--- NOTE | 2017-08-19 08:57 | RAD ---
CHEST 1 VIEW: Date: 08/19/17 HISTORY: 52-year-old male with respiratory insufficiency. FINDINGS: NG tube and endotracheal tubes are in stable position. There appears to be some bilateral stable hype rinflation and some chronic interstitial changes. No confluent pneumonia or overt edema. IMPRESSION: Stable hyperinflation and chronic lung change. Continue short-term follow-up for clearing. POS: [facility]
[2017-08-19 09:17] LABS: Actual Bicarbonate (HCO3a) 38.7 mEq/L (22-26); Base Excess (BEa) 11.8 mEq/L (0 (+/-) 2.5); CO2 Tension 63.3 mmHg (35.0-45.0); Hematocrit-ABG 32.2 % (42.0-52.0); O2 Tension (PaO2) 76.8 mmHg (80.0-100.0)
[2017-08-19 09:18] LABS: ALV-art Gradient 129.275 (0-20); Calcium, Ionized 1.3 mmol/L (1.12-1.30); Puncture Site RRA
--- NOTE | 2017-08-19 09:53 | PRG ---
DATE OF SERVICE: 08/19/2017 He was intubated on the vent for severe respiratory distress, asthma, chronic obstructive pulmonary d isease exacerbation, severe distress, high peak pressures. PHYSICAL EXAMINATION: VITAL SIGNS: Temperature 100.3, blood pressure 134/70, pulse 87%. CHEST: Chest revealed decreased breath sounds with prolonged expiration. I hear no wheezing today. CARDIAC: Sinus tachycardia. ABDOMEN: Soft. NEURO: Neurologically he is heavily sedated. LABORATORY: White count 5000, H&H 10 and 34, platelet count 207, pO2 was 97, pCO2 67.40, rate of 14, 40%. Electrolytes are normal. X-ray shows no acute infiltrates. IMPRESSION: 1. Respiratory failure. 2. Chronic obstructive pulmonary disease. 3. Severe bronchospasm. 4. Marked hyperinflation. PLAN: Continue high dose steroids, neb treatments, assess neurological status after holding the Dipr vern, slow weaning as tolerated. One-half hour critical care time.
[2017-08-19] MEDS: Famotidine/PF 20 mg/2ml Vial SLOW IVP SCH ×2 (10:33→22:02)
[2017-08-19] MEDS: Nicotine 14 MG PATCH TD SCH (10:33)
[2017-08-19] MEDS: Enoxaparin Sodium 40 MG/0.4 ML SYRINGE SC SCH (10:33)
--- NOTE | 2017-08-19 11:02 | PDOC.PN ---
- Subjective Encounter Start Date: 08/19/17 Encounter Start Time: 08:50 Subjective: is on vent, sedated -: not in distress - Objective Resuscitation Status: Resuscitation Status FULL:Full Resuscitation MAR Reviewed: Yes Vital Signs & Weight: Vital Signs (12 hours) Temp Pulse Resp BP Pulse Ox 08/19/17 09:00 80 134/70 08/19/17 08:59 75 14 100 08/19/17 07:48 100.3 F H 88 14 08/19/17 07:00 100.3 F H 08/19/17 06:00 14 08/19/17 04:00 98.9 F 23 H 08/19/17 02:12 82 15 100 08/19/17 02:11 84 08/19/17 02:00 14 08/19/17 00:30 83 15 100 08/19/17 00:00 99.2 F 14 Weight Admit Weight 180 lb Weight 180 lb 15.992 oz Most Recent Monitor Data Heart Rate from ECG 74 NIBP 132/63 NIBP BP-Mean 81 Respiration from ECG 14 SpO2 100 I&O: 08/18/17 08/19/17 08/20/17 06:59 06:59 06:59 Intake Total 5004 2034 Output Total 2760 4030 100 Balance 2244 -1996 -100 Result Diagrams: 08/19/17 05:10 08/19/17 05:10 Phys Exam - Physical Examination HEENT: PERRLA, sclera anicteric Neck: no JVD, supple Respiratory: no rales, wheezing present Cardiovascular: RRR, no significant murmur Gastrointestinal: soft, non-tender, positive bowel sounds Musculoskeletal: no edema, pulses present Neurological: non-focal, moves all 4 limbs Dx/Plan (1) Acute respiratory failure with hypoxia and hypercapnia Code(s): J96.01 - ACUTE RESPIRATORY FAILURE WITH HYPOXIA; J96.02 - ACUTE RESPIRATORY FAILURE WITH HYPERCAPNIA Status: Acute (2) Status asthmaticus Code(s): J45.902 - UNSPECIFIED ASTHMA WITH STATUS ASTHMATICUS Status: Acute Qualifiers: Asthma severity: severe Asthma persistence: persistent Qualified Code(s) : J45.52 - Severe persistent asthma with status asthmaticus (3) HTN (hypertension) Code(s): I10 - ESSENTIAL (PRIMARY) HYPERTENSION Status: Chronic Qualifiers: Hypertension type: essential hypertension (4) Inguinal hernia Code(s): K40.90 - UNIL INGUINAL HERNIA, W/O OBST OR GANGR, NOT SPCF RECUR Status: Chronic Qualifiers: Obstruction and gangrene presence: without obstruction or gangrene Comment: large, will need outpt repair once his copd stabilizes (5) Tobacco abuse Code(s): Z72.0 - TOBACCO USE Status: Chronic - Plan is on vent -: not weanable, still wheezing and acidotic -: on ceftriaxone, zithromax and high dose solumedrol -: gentle iv hydration, ng feeds * . Review of Systems - Medications/Allergies Allergies/Adverse Reactions: Allergies Allergy/AdvReac Type Severity Reaction Status Date / Time No Known Drug Allergies Allergy Verified 09/21/16 02:50 Medications: Current Medications Acetaminophen (Tylenol) 650 mg PO Q4H PRN PRN Reason: Headache/Fever or Pain Albuterol/Ipratropium (Duoneb) 3 ml NEB [id number] [facility] Last Admin: 08/19/17 08:59 Dose: 3 ml Benzonatate (Tessalon) 100 mg PO Q4H PRN PRN Reason: Cough Docusate Sodium (Colace Liquid) 100 mg PER TUBE BID [facility] Last Admin: 08/18/17 20:00 Dose: 100 mg Enoxaparin Sodium (Lovenox) 40 mg SC 0900 [facility] Last Admin: 08/19/17 10:33 Dose: 40 mg Famotidine (Pepcid) 20 mg SLOW IVP Q12HR [facility] Last Admin: 08/19/17 10:33 Dose: 20 mg Hydralazine HCl (Apresoline) 10 mg SLOW IVP Q4H PRN PRN Reason: Systolic BP > 180 Azithromycin 500 mg/ Sodium (Chloride) 250 mls @ 250 mls/hr IVPB 0600 [facility] Last Admin: 08/19/17 05:36 Dose: 250 mls Ceftriaxone Sodium 2 gm/ (Sodium Chloride) 100 mls @ 200 mls/hr IVPB 0500 [facility] Last Admin: 08/19/17 04:25 Dose: 100 mls Potassium Chloride 40 meq/ (Sodium Chloride) 270 mls @ 135 mls/hr IVPB ASDIR PRN PRN Reason: FOR SERUM K+ 2.5 - 3.5 Potassium Chloride 40 meq/ (Device) 100 mls @ 50 mls/hr IVPB ASDIR PRN PRN Reason: FOR SERUM K+ 2.5 - 3.5 Magnesium Sulfate 1 gm/ Sodium (Chloride) 102 mls @ 102 mls/hr IV PRN PRN PRN Reason: MAG LEVEL 1.4 - 2.0 Magnesium Sulfate 2 gm/ Device 100 mls @ 100 mls/hr IVPB ASDIR PRN PRN Reason: MAGNESIUM < 1.4 Potassium Phosphate 9 mmol/ (Sodium Chloride) 103 mls @ 25.75 mls/hr IVPB ASDIR PRN PRN Reason: Phosphate 1.0-1.8 Potassium Phosphate 12 mmol/ (Sodium Chloride) 254 mls @ 63.5 mls/hr IV ASDIR PRN PRN Reason: Serum phosphate 0.5-0.9 Potassium Phosphate 15 mmol/ (Sodium Chloride) 255 mls @ 63.75 mls/hr IV ASDIR PRN PRN Reason: Serum Phos < 0.5 Fentanyl Citrate 2,000 mcg/ (Sodium Chloride) 100 mls @ 0 mls/hr IV INF DOMINIC; Per Protocol PRN Reason: Protocol Stop: 09/15/17 09:17 Fentanyl Citrate (Fentanyl Bolus) 250 mls @ 0 mls/hr IVPB PRN PRN; As Directed PRN Reason: Breakthrough pain Stop: 09/15/17 09:17 Lorazepam (Ativan) 0.5 mg SLOW IVP Q4H PRN PRN Reason: Anxiety/Agitation Lorazepam (Ativan) 2 mg SLOW IVP Q2H PRN PRN Reason: Anxiety to achieve Smith 2-3 Stop: 09/15/17 09:17 Last Admin: 08/18/17 13:17 Dose: 2 mg Magnesium Oxide (Magnesium Oxide) 400 mg PO BIDPRN PRN PRN Reason: FOR SERUM MAG 1.4 - 2.0 Magnesium Oxide (Magnesium Oxide) 800 mg PO PRN PRN PRN Reason: FOR SERUM MAG < 1.4 Methylprednisolone Sodium Succinate (Solu-Medrol) 60 mg IVP Q6HR [facility] Last Admin: 08/19/17 05:14 Dose: 60 mg Miscellaneous Medication (Phos-Nak) 1 pkt PO TIDPRN PRN PRN Reason: FOR PHOS LEVEL 1.0 - 1.8 Miscellaneous Medication (Phos-Nak) 2 pkt PO TIDPRN PRN PRN Reason: FOR PHOS LEVEL 0.5 - 1.0 Morphine Sulfate (Morphine) 2 mg SLOW IVP Q2H PRN PRN Reason: Breakthrough pain Stop: 09/15/17 09:17 Last Admin: 08/16/17 22:35 Dose: 2 mg Nicotine (Nicoderm Patch) 14 mg TD DAILY [facility] Last Admin: 08/19/17 10:33 Dose: 14 mg Ondansetron HCl (Zofran) 4 mg IVP Q6H PRN PRN Reason: Nausea/Vomiting Potassium Chloride (K-Dur) 40 meq PO ASDIR PRN PRN Reason: FOR SERUM K+ 2.5 - 3.5 Potassium Chloride (Klor-Con) 40 meq PER TUBE ASDIR PRN PRN Reason: FOR SERUM K+ 2.5-3.5 Propofol (Diprivan) 1,000 mg IV INF PRN; Protocol PRN Reason: TO ACHIEVE SMITH SCORE 2-3 Stop: 09/15/17 09:17 Last Admin: 08/19/17 02:21 Dose: 1,000 mg Rocuronium Harrison (Zemuron) 50 mg IVP Q30MIN PRN PRN Reason: Agitation Last Admin: 08/17/17 06:02 Dose: 50 mg
[2017-08-19] MEDS: Docusate Sodium 100 MG/10 ML UDCUP PER TUBE SCH ×2 (13:43→22:02)
[2017-08-20] MEDS: cefTRIAXone\\ROCEPHIN 2 GM in Sodium Chloride 0.9% 100 ML IVPB SCH (04:44)
[2017-08-20] MEDS: Propofol 1,000 MG/100 ML VIAL IV PRN (04:46)
[2017-08-20 04:59] LABS: #Lymphocytes 0.6 thou/uL (1.20-3.40); #Monocytes 0.6 thou/uL (0.11-0.59); #Neutrophils 5.4 thou/uL (1.40-6.50); %Basophils 0.1 % (0.0-1.0); %Eosinophils 0.1 % (0.0-10.0); %Monocytes 8.9 % (0.0-10.0); %Neutrophils 81.8 % (42.0-75.0); Hemoglobin 11.1 g/dL (14.0-18.0); Mean Corpuscular Hemoglobin 28.5 pg (27.0-31.0); Mean Corpuscular Volume 89.1 fl (80.0-94.0); Mean Platelet Volume 6.7 fL (7.4-10.4); Platelet Count 199 thou/uL (130-400); RBC Distribution Width 12.9 % (11.5-14.5); Red Blood Cell (RBC) Count 3.89 mill/uL (4.70-6.10); White Blood Cell (WBC) Count 6.6 thou/uL (4.8-10.8)
[2017-08-20 05:07] LABS: BUN (Urea Nitrogen) 25 mg/dL (8.4-25.7); Calc. Creatinine Clearance 188 mL/min (70-130); Calcium 9.4 mg/dL (7.8-10.44); Estimated GFR-MDRD Greater than 90; Glucose 175 mg/dL (70-105)
[2017-08-20 05:16] LABS: Anion Gap 8 mmol/L (10-20); Carbon Dioxide 38 mmol/L (22-29); Chloride 106 mmol/L (98-107); Potassium 3.8 mmol/L (3.5-5.1); Sodium 148 mmol/L (136-145)
[2017-08-20] MEDS: Azithromycin 500 MG in Sodium Chloride 0.9% 250 ML 250 ML IVPB SCH (06:17)
[2017-08-20] MEDS: Sodium Chloride 0.9% 1,000 ML IV SCH (08:00)
[2017-08-20] MEDS: Nicotine 14 MG PATCH TD SCH (08:43)
[2017-08-20] MEDS: Famotidine/PF 20 mg/2ml Vial SLOW IVP SCH ×2 (08:43→21:46)
[2017-08-20] MEDS: Enoxaparin Sodium 40 MG/0.4 ML SYRINGE SC SCH (08:43)
[2017-08-20] MEDS: Docusate Sodium 100 MG/10 ML UDCUP PER TUBE SCH ×2 (08:44→21:46)
[2017-08-20 10:16] LABS: Actual Bicarbonate (HCO3a) 36.8 mEq/L (22-26); Base Excess (BEa) 10.8 mEq/L (0 (+/-) 2.5); CO2 Tension 56.4 mmHg (35.0-45.0); Hematocrit-ABG 34.5 % (42.0-52.0); Hemoglobin (Hb) 11.1 g/dL (14.0-18.0); O2 Tension (PaO2) 64.4 mmHg (80.0-100.0); pH, Arterial 7.43 (7.35-7.45)
[2017-08-20 10:17] LABS: Calcium, Ionized 1.3 mmol/L (1.12-1.30)
[2017-08-20 10:18] LABS: Puncture Site RRA
--- NOTE | 2017-08-20 10:20 | RAD ---
SEMIUPRIGHT CHEST 1 VIEW: Date: 08/20/17 HISTORY: 52-year-old male with respiratory insufficiency follow-up. FINDINGS: Scattered stable linear and interstitial increased markings bilaterally. Life support tubes in place. No cardiomegaly. IMPRESSION: Stable bilateral interstitial changes. Life support tubes remain in place and stable. POS: [facility]
--- NOTE | 2017-08-20 10:57 | PDOC.PN ---
- Subjective Encounter Start Date: 08/20/17 Encounter Start Time: 09:40 Subjective: is waking up on vent, still on sedation - Objective Resuscitation Status: Resuscitation Status FULL:Full Resuscitation MAR Reviewed: Yes Vital Signs & Weight: Vital Signs (12 hours) Temp Pulse Resp BP Pulse Ox 08/20/17 08:48 59 L 160/55 H 08/20/17 08:44 59 L 19 99 08/20/17 08:00 15 08/20/17 07:48 98.6 F 59 L 15 100 08/20/17 07:00 98.6 F 08/20/17 06:00 26 H 08/20/17 04:01 59 L 134/55 L 08/20/17 04:00 24 H 08/20/17 02:00 25 H 08/20/17 01:37 72 08/20/17 00:00 98.6 F 22 H Weight Admit Weight 180 lb Weight 180 lb 15.992 oz Most Recent Monitor Data Heart Rate from ECG 72 NIBP 167/76 NIBP BP-Mean 120 Respiration from ECG 18 SpO2 99 I&O: 08/19/17 08/20/17 08/21/17 06:59 06:59 06:59 Intake Total 2034 1692 30 Output Total 4030 1875 180 Balance -1996 -183 -150 Result Diagrams: 08/20/17 04:19 08/20/17 04:19 Phys Exam - Physical Examination HEENT: PERRLA, moist MMs Neck: no JVD, supple Respiratory: no wheezing, no rales Cardiovascular: RRR, no significant murmur Gastrointestinal: soft, non-tender, positive bowel sounds Musculoskeletal: no edema, pulses present Neurological: non-focal Dx/Plan (1) Acute respiratory failure with hypoxia and hypercapnia Code(s): J96.01 - ACUTE RESPIRATORY FAILURE WITH HYPOXIA; J96.02 - ACUTE RESPIRATORY FAILURE WITH HYPERCAPNIA Status: Acute (2) Status asthmaticus Code(s): J45.902 - UNSPECIFIED ASTHMA WITH STATUS ASTHMATICUS Status: Acute Qualifiers: Asthma severity: severe Asthma persistence: persistent Qualified Code(s) : J45.52 - Severe persistent asthma with status asthmaticus (3) HTN (hypertension) Code(s): I10 - ESSENTIAL (PRIMARY) HYPERTENSION Status: Chronic Qualifiers: Hypertension type: essential hypertension (4) Inguinal hernia Code(s): K40.90 - UNIL INGUINAL HERNIA, W/O OBST OR GANGR, NOT SPCF RECUR Status: Chronic Qualifiers: Obstruction and gangrene presence: without obstruction or gangrene Comment: large, will need outpt repair once his copd stabilizes (5) Tobacco abuse Code(s): Z72.0 - TOBACCO USE Status: Chronic - Plan glucose intolerance due to high dose steroids -: weaning per pulm advice -: is on ceftriaxone and zithromax -: at bedside -: gentle iv hydration, sodium around 148 * . Review of Systems - Medications/Allergies Allergies/Adverse Reactions: Allergies Allergy/AdvReac Type Severity Reaction Status Date / Time No Known Drug Allergies Allergy Verified 09/21/16 02:50 Medications: Current Medications Acetaminophen (Tylenol) 650 mg PO Q4H PRN PRN Reason: Headache/Fever or Pain Albuterol/Ipratropium (Duoneb) 3 ml NEB [id number] [facility] Last Admin: 08/20/17 08:44 Dose: 3 ml Benzonatate (Tessalon) 100 mg PO Q4H PRN PRN Reason: Cough Docusate Sodium (Colace Liquid) 100 mg PER TUBE BID [facility] Last Admin: 08/20/17 08:44 Dose: 100 mg Enoxaparin Sodium (Lovenox) 40 mg SC 0900 [facility] Last Admin: 08/20/17 08:43 Dose: 40 mg Famotidine (Pepcid) 20 mg SLOW IVP Q12HR [facility] Last Admin: 08/20/17 08:43 Dose: 20 mg Hydralazine HCl (Apresoline) 10 mg SLOW IVP Q4H PRN PRN Reason: Systolic BP > 180 Azithromycin 500 mg/ Sodium (Chloride) 250 mls @ 250 mls/hr IVPB 0600 [facility] Last Admin: 08/20/17 06:17 Dose: 250 mls Ceftriaxone Sodium 2 gm/ (Sodium Chloride) 100 mls @ 200 mls/hr IVPB 0500 [facility] Last Admin: 08/20/17 04:44 Dose: 100 mls Potassium Chloride 40 meq/ (Sodium Chloride) 270 mls @ 135 mls/hr IVPB ASDIR PRN PRN Reason: FOR SERUM K+ 2.5 - 3.5 Potassium Chloride 40 meq/ (Device) 100 mls @ 50 mls/hr IVPB ASDIR PRN PRN Reason: FOR SERUM K+ 2.5 - 3.5 Magnesium Sulfate 1 gm/ Sodium (Chloride) 102 mls @ 102 mls/hr IV PRN PRN PRN Reason: MAG LEVEL 1.4 - 2.0 Magnesium Sulfate 2 gm/ Device 100 mls @ 100 mls/hr IVPB ASDIR PRN PRN Reason: MAGNESIUM < 1.4 Potassium Phosphate 9 mmol/ (Sodium Chloride) 103 mls @ 25.75 mls/hr IVPB ASDIR PRN PRN Reason: Phosphate 1.0-1.8 Potassium Phosphate 12 mmol/ (Sodium Chloride) 254 mls @ 63.5 mls/hr IV ASDIR PRN PRN Reason: Serum phosphate 0.5-0.9 Potassium Phosphate 15 mmol/ (Sodium Chloride) 255 mls @ 63.75 mls/hr IV ASDIR PRN PRN Reason: Serum Phos < 0.5 Fentanyl Citrate 2,000 mcg/ (Sodium Chloride) 100 mls @ 0 mls/hr IV INF DOMINIC; Per Protocol PRN Reason: Protocol Stop: 09/15/17 09:17 Fentanyl Citrate (Fentanyl Bolus) 250 mls @ 0 mls/hr IVPB PRN PRN; As Directed PRN Reason: Breakthrough pain Stop: 09/15/17 09:17 Sodium Chloride (Normal Saline 0.9%) 1,000 mls @ 50 mls/hr IV .Q20H [facility] Last Admin: 08/20/17 08:00 Dose: 1,000 mls Lorazepam (Ativan) 0.5 mg SLOW IVP Q4H PRN PRN Reason: Anxiety/Agitation Lorazepam (Ativan) 2 mg SLOW IVP Q2H PRN PRN Reason: Anxiety to achieve Smith 2-3 Stop: 09/15/17 09:17 Last Admin: 08/18/17 13:17 Dose: 2 mg Magnesium Oxide (Magnesium Oxide) 400 mg PO BIDPRN PRN PRN Reason: FOR SERUM MAG 1.4 - 2.0 Magnesium Oxide (Magnesium Oxide) 800 mg PO PRN PRN PRN Reason: FOR SERUM MAG < 1.4 Methylprednisolone Sodium Succinate (Solu-Medrol) 60 mg IVP Q6HR [facility] Last Admin: 08/20/17 06:12 Dose: 60 mg Miscellaneous Medication (Phos-Nak) 1 pkt PO TIDPRN PRN PRN Reason: FOR PHOS LEVEL 1.0 - 1.8 Miscellaneous Medication (Phos-Nak) 2 pkt PO TIDPRN PRN PRN Reason: FOR PHOS LEVEL 0.5 - 1.0 Morphine Sulfate (Morphine) 2 mg SLOW IVP Q2H PRN PRN Reason: Breakthrough pain Stop: 09/15/17 09:17 Last Admin: 08/16/17 22:35 Dose: 2 mg Nicotine (Nicoderm Patch) 14 mg TD DAILY [facility] Last Admin: 08/20/17 08:43 Dose: 14 mg Ondansetron HCl (Zofran) 4 mg IVP Q6H PRN PRN Reason: Nausea/Vomiting Potassium Chloride (K-Dur) 40 meq PO ASDIR PRN PRN Reason: FOR SERUM K+ 2.5 - 3.5 Potassium Chloride (Klor-Con) 40 meq PER TUBE ASDIR PRN PRN Reason: FOR SERUM K+ 2.5-3.5 Propofol (Diprivan) 1,000 mg IV INF PRN; Protocol PRN Reason: TO ACHIEVE SMITH SCORE 2-3 Stop: 09/15/17 09:17 Last Admin: 08/20/17 04:46 Dose: 1,000 mg
--- NOTE | 2017-08-20 14:20 | PRG ---
DATE OF SERVICE: 08/20/2017 SUBJECTIVE: Mr. Mendel Lizarraga is a 52-year-old gentleman, intubated on the vent, sedated, though he is much more responsive. OBJECTIVE: VITAL SIGNS: Blood pressure 160/70, pulse 120, sats are 90%. I's and O's are 1692 in and 1875 out. CHEST: Decreased breath sounds. Wheezing is improved, prolonged expiration. CARDIAC: Sinus tachycardia. ABDOMEN: Soft. LABORATORY AND IMAGING DATA: X-ray showed no acute infiltrates. His white count is 6, hemoglobin an d hematocrit is 11 and 34, platelet count 199. IMPRESSION: Chronic obstructive pulmonary disease. Asthma, stable. Respiratory failure. PLAN: I am trying to hold sedation, may consider weaning and extubation. One-half hour critical care time.
[2017-08-20] MEDS ORDERED: Atropine Sulfate 1 mg/10 ml Syringe IVP PRN (17:28)
[2017-08-20 17:43] LABS: CO2 Tension 53.3 mmHg (35.0-45.0); O2 Tension (PaO2) 71.1 mmHg (80.0-100.0); pH, Arterial 7.44 (7.35-7.45)
[2017-08-20 17:44] LABS: Actual Bicarbonate (HCO3a) 35.3 mEq/L (22-26); Base Excess (BEa) 9.6 mEq/L (0 (+/-) 2.5); Calcium, Ionized 1.3 mmol/L (1.12-1.30); Hematocrit-ABG 36.4 % (42.0-52.0); Hemoglobin (Hb) 11.5 g/dL (14.0-18.0)
[2017-08-20 17:45] LABS: ALV-art Gradient 61.915 (0-20); Puncture Site RRA
[2017-08-20] MEDS ORDERED: DOBUTamine 500 mg/250 ml 500 MG in Premix Bag 1 BAG IVPB SCH (18:00)
[2017-08-20 18:47] LABS: ALT (SGPT) 226 U/L (8-55); AST (SGOT) 124 U/L (5-34); Albumin 3.1 g/dL (3.5-5.0); Alkaline Phosphatase 80 U/L (40-150); Anion Gap 10 mmol/L (10-20); BUN (Urea Nitrogen) 23 mg/dL (8.4-25.7); Bilirubin, Total 0.6 mg/dL (0.2-1.2); Calc. Creatinine Clearance 188 mL/min (70-130); Calcium 9.5 mg/dL (7.8-10.44); Carbon Dioxide 36 mmol/L (22-29); Chloride 104 mmol/L (98-107); Estimated GFR-MDRD Greater than 90; Globulin 2.7 g/dL (2.4-3.5); Glucose 145 mg/dL (70-105); Potassium 4.5 mmol/L (3.5-5.1); Protein, Total 5.8 g/dL (6.0-8.3); Sodium 145 mmol/L (136-145)
[2017-08-20] MEDS: hydrALAZINE 20 MG/ML VIAL SLOW IVP PRN (19:19)
[2017-08-20] MEDS ORDERED: Docusate 100 MG CAP PO SCH (21:30)
[2017-08-20] MEDS: Docusate 100 MG CAP PO SCH (21:46)
[2017-08-21 05:06] LABS: Band 8 % (5-11); Lymphocytes 9 % (21-51); MDiff Complete? YES; Mean Corpuscular HGB CONC 31.3 g/dL (32.0-36.0); Mean Corpuscular Hemoglobin 27.6 pg (27.0-31.0); Mean Corpuscular Volume 88.2 fl (80.0-94.0); Mean Platelet Volume 6.6 fL (7.4-10.4); Metamyelocyte 1 % (0-0); Monocytes 7 % (0-10); Myelocyte 1 % (0-0); Neutrophil 74 % (42-75); Nucleated RBC 1 % (0); PLT Morphology Comment Appears Adequate; Platelet Count 214 thou/uL (130-400); RBC Distribution Width 12.5 % (11.5-14.5); Red Blood Cell (RBC) Count 4.37 mill/uL (4.70-6.10); White Blood Cell (WBC) Count 7.9 thou/uL (4.8-10.8)
[2017-08-21 05:09] LABS: Anion Gap 11 mmol/L (10-20); BUN (Urea Nitrogen) 16 mg/dL (8.4-25.7); Calc. Creatinine Clearance 211 mL/min (70-130); Calcium 9.6 mg/dL (7.8-10.44); Carbon Dioxide 31 mmol/L (22-29); Chloride 104 mmol/L (98-107); Estimated GFR-MDRD Greater than 90; Glucose 154 mg/dL (70-105); Potassium 4.4 mmol/L (3.5-5.1); Sodium 142 mmol/L (136-145)
[2017-08-21 05:15] LABS: Troponin I 0.077 ng/mL (< 0.028)
[2017-08-21 05:22] LABS: CKMB 8.2 ng/mL (0-6.6)
[2017-08-21] MEDS: cefTRIAXone\\ROCEPHIN 2 GM in Sodium Chloride 0.9% 100 ML IVPB SCH (05:46)
[2017-08-21] MEDS: hydrALAZINE 20 MG/ML VIAL SLOW IVP PRN (05:46)
--- NOTE | 2017-08-21 08:09 | PDOC.PULCC ---
CCU Progress Note: Subj/Obj - Subjective Date: 08/21/17 Time: 08:07 - Objective Allergies/Adverse Reactions: Allergies Allergy/AdvReac Type Severity Reaction Status Date / Time No Known Drug Allergies Allergy Verified 09/21/16 02:50 Medications: Current Medications Acetaminophen (Tylenol) 650 mg PO Q4H PRN PRN Reason: Headache/Fever or Pain Albuterol/Ipratropium (Duoneb) 3 ml NEB [id number] [facility] Last Admin: 08/21/17 03:53 Dose: 3 ml Benzonatate (Tessalon) 100 mg PO Q4H PRN PRN Reason: Cough Docusate Sodium (Colace) 100 mg PO BID [facility] Enoxaparin Sodium (Lovenox) 40 mg SC 0900 [facility] Last Admin: 08/20/17 08:43 Dose: 40 mg Famotidine (Pepcid) 20 mg SLOW IVP Q12HR [facility] Last Admin: 08/20/17 21:46 Dose: 20 mg Hydralazine HCl (Apresoline) 10 mg SLOW IVP Q4H PRN PRN Reason: Systolic BP > 180 Last Admin: 08/21/17 05:46 Dose: 10 mg Ceftriaxone Sodium 2 gm/ (Sodium Chloride) 100 mls @ 200 mls/hr IVPB 0500 [facility] Last Admin: 08/21/17 05:46 Dose: 100 mls Potassium Chloride 40 meq/ (Sodium Chloride) 270 mls @ 135 mls/hr IVPB ASDIR PRN PRN Reason: FOR SERUM K+ 2.5 - 3.5 Potassium Chloride 40 meq/ (Device) 100 mls @ 50 mls/hr IVPB ASDIR PRN PRN Reason: FOR SERUM K+ 2.5 - 3.5 Magnesium Sulfate 1 gm/ Sodium (Chloride) 102 mls @ 102 mls/hr IV PRN PRN PRN Reason: MAG LEVEL 1.4 - 2.0 Magnesium Sulfate 2 gm/ Device 100 mls @ 100 mls/hr IVPB ASDIR PRN PRN Reason: MAGNESIUM < 1.4 Potassium Phosphate 9 mmol/ (Sodium Chloride) 103 mls @ 25.75 mls/hr IVPB ASDIR PRN PRN Reason: Phosphate 1.0-1.8 Potassium Phosphate 12 mmol/ (Sodium Chloride) 254 mls @ 63.5 mls/hr IV ASDIR PRN PRN Reason: Serum phosphate 0.5-0.9 Potassium Phosphate 15 mmol/ (Sodium Chloride) 255 mls @ 63.75 mls/hr IV ASDIR PRN PRN Reason: Serum Phos < 0.5 Lorazepam (Ativan) 0.5 mg SLOW IVP Q4H PRN PRN Reason: Anxiety/Agitation Magnesium Oxide (Magnesium Oxide) 400 mg PO BIDPRN PRN PRN Reason: FOR SERUM MAG 1.4 - 2.0 Magnesium Oxide (Magnesium Oxide) 800 mg PO PRN PRN PRN Reason: FOR SERUM MAG < 1.4 Methylprednisolone Sodium Succinate (Solu-Medrol) 20 mg IVP Q6HR [facility] Miscellaneous Medication (Phos-Nak) 1 pkt PO TIDPRN PRN PRN Reason: FOR PHOS LEVEL 1.0 - 1.8 Miscellaneous Medication (Phos-Nak) 2 pkt PO TIDPRN PRN PRN Reason: FOR PHOS LEVEL 0.5 - 1.0 Nicotine (Nicoderm Patch) 14 mg TD DAILY [facility] Last Admin: 08/20/17 08:43 Dose: 14 mg Ondansetron HCl (Zofran) 4 mg IVP Q6H PRN PRN Reason: Nausea/Vomiting Potassium Chloride (K-Dur) 40 meq PO ASDIR PRN PRN Reason: FOR SERUM K+ 2.5 - 3.5 Potassium Chloride (Klor-Con) 40 meq PER TUBE ASDIR PRN PRN Reason: FOR SERUM K+ 2.5-3.5 OCT Reviewed: Yes Vital Signs and I&O: Vital Signs Temp 99.2 F 08/20/17 20:00 Pulse 49 L 08/21/17 05:46 Resp 13 08/20/17 20:00 BP 188/86 H 08/21/17 05:46 Pulse Ox 99 08/21/17 03:53 Intake & Output 08/20/17 08/21/17 08/21/17 18:59 06:59 18:59 Intake Total 842 693.2 Output Total 1140 1490 Balance -298 -796.8 Intake: Intake, IV Amount 605 593.2 DOBUTamine 500 mg/250 ml 11.2 500 mg In Premix Bag 1 bag @ As Directed IVPB INF [facility] Rx#:[id number] Propofol 1000 mg (See 51 Protocol) IV INF PRN Rx#: [id number] Sodium Chloride 0.9% 1, 554 582 000 ml @ 50 mls/hr IV . Q20H [facility] Rx#:[id number] Oral 120 100 Tube Feeding 87 Tube Irrigant 30 Output: Output, Patterson 1140 1490 Other: Voiding Method Indwelling Catheter Indwelling Catheter # Bowel Movements 0 Vent Setting: extubated 08/20 CCU Progress Note: Exam - Physical Exam Constitutional: NAD HEENT: PERRLA, moist MMs, sclera anicteric Neck: no nodes, no JVD Cardiovascular: RRR, no significant murmur Respiratory: clear to auscultation bilaterally Gastrointestinal: soft, non-tender Musculoskeletal: pulses present, edema present Neurological: non-focal, moves all 4 limbs Lymphatic: no nodes Psychiatric: normal affect, A&O x 3 Skin: no rash - Labs Result Diagrams: 08/21/17 04:25 08/21/17 04:25 Lab results: Laboratory Results - last 24 hr 08/20/17 08/20/17 08/20/17 08:50 17:25 18:23 WBC RBC Hgb Hct MCV MCH MCHC RDW Plt Count MPV Neutrophils % (Manual) Band Neuts % (Manual) Lymphocytes % (Manual) Monocytes % (Manual) Metamyelocytes % (Man) Myelocytes % Nucleated RBCs # (Man) Plt Morphology Comment Specimen Type ARTERIAL ARTERIAL Puncture Site RRA RRA Bicarbonate Actual 36.8 H 35.3 H ABG pH 7.43 7.44 ABG pCO2 56.4 H 53.3 H ABG pO2 64.4 L 71.1 L ABG O2 Sat Calc/Mian 94.3 95.7 ABG O2 Content 14.5 L 15.3 L ABG Base Excess 10.8 H 9.6 H ABG Hematocrit 34.5 L 36.4 L ABG Hemoglobin 11.1 L 11.5 L ABG Carboxyhemoglobin 1.1 1.0 ABG Methemoglobin 0.6 0.5 Aníbal Test NOT DONE NOT DONE A-a O2 Gradient 150.300 H 61.915 H Sodium 149 H 149 H 145 Potassium 4.1 4.4 4.5 Chloride 104 101 104 Ionized Calcium 1.3 1.3 Mode of Support SIMV/PSV O2 2L/M NC Mechanical Rate 14 Inspired O2 40 28 Tidal Volume 400 Pressure Support 10 PEEP or CPAP 5.0 Carbon Dioxide 36 H Anion Gap 10 BUN 23 Creatinine 0.54 L Estimated GFR (MDRD) Greater than 90 Glucose 145 H Calcium 9.5 Total Bilirubin 0.6 AST 124 H ALT 226 H Alkaline Phosphatase 80 CK-MB (CK-2) Troponin I Serum Total Protein 5.8 L Albumin 3.1 L Globulin 2.7 Albumin/Globulin Ratio 1.1 L 08/21/17 08/21/17 08/21/17 04:25 04:25 04:25 WBC 7.9 RBC 4.37 L Hgb 12.0 L Hct 38.5 L MCV 88.2 MCH 27.6 MCHC 31.3 L RDW 12.5 Plt Count 214 MPV 6.6 L Neutrophils % (Manual) 74 Band Neuts % (Manual) 8 Lymphocytes % (Manual) 9 L Monocytes % (Manual) 7 Metamyelocytes % (Man) 1 H Myelocytes % 1 H Nucleated RBCs # (Man) 1 H Plt Morphology Comment Appears Adequate Specimen Type Puncture Site Bicarbonate Actual ABG pH ABG pCO2 ABG pO2 ABG O2 Sat Calc/Mian ABG O2 Content ABG Base Excess ABG Hematocrit ABG Hemoglobin ABG Carboxyhemoglobin ABG Methemoglobin Aníbal Test A-a O2 Gradient Sodium 142 Potassium 4.4 Chloride 104 Ionized Calcium Mode of Support Mechanical Rate Inspired O2 Tidal Volume Pressure Support PEEP or CPAP Carbon Dioxide 31 H Anion Gap 11 BUN 16 Creatinine 0.48 L Estimated GFR (MDRD) Greater than 90 Glucose 154 H Calcium 9.6 Total Bilirubin AST ALT Alkaline Phosphatase CK-MB (CK-2) 8.2 H* Troponin I 0.077 H Serum Total Protein Albumin Globulin Albumin/Globulin Ratio CCU Progress Note: A/P - Problems (1) Acute respiratory failure with hypoxia and hypercapnia Current Visit: Yes Status: Resolved Code(s): J96.01 - ACUTE RESPIRATORY FAILURE WITH HYPOXIA; J96.02 - ACUTE RESPIRATORY FAILURE WITH HYPERCAPNIA (2) Status asthmaticus Current Visit: Yes Status: Acute Code(s): J45.902 - UNSPECIFIED ASTHMA WITH STATUS ASTHMATICUS Qualifiers: Asthma severity: severe Asthma persistence: persistent Qualified Code(s) : J45.52 - Severe persistent asthma with status asthmaticus - Plan Plan: Up in chair as tolerated Start diet Decrease steroids await cardiology input regarding chest pain may need stress test hopefully to floor this pm
--- NOTE | 2017-08-21 08:16 | RAD ---
CHEST 1 VIEW: HISTORY: Dyspnea. Followup. COMPARISON: 08/20/17. FINDINGS: Cardiac silhouette is magnified by projection. Pulmonary vasculature remains upper limits of normal. Mediastinum is midline. No lobar consolidation or pneumothorax are apparent. Endotracheal cathete r and nasogastric tube have been removed. patient monitor leads overlie the chest. IMPRESSION: Interval removal of endotracheal catheter and nasogastric tube. Otherwise, stable radiographic appea myah of the chest. POS: [facility]
--- NOTE | 2017-08-21 09:11 | CON ---
DATE OF CONSULTATION: 08/21/2017 REASON FOR CONSULTATION: Junctional rhythm and chest pain. PRIMARY CARE PROVIDER: Dr. Lino Moy. HISTORY OF PRESENT ILLNESS: Mr. Lizarraga is a 52-year-old gentleman who recently presented with respirat ory failure. He has a history of asthma and is noncompliant. Unfortunately, he smokes tobacco and m arijuana. He was extubated yesterday and was in a junctional rhythm shortly thereafter. He was plac ed on low dose dobutamine and his junctional rhythm resolved. In the middle of the night, he also had an episode of chest pain lasting 5 minutes. His CK-MB was 8 with a troponin of 0.077. He is currently pain free, although during my interview, appears confused. PAST MEDICAL HISTORY: As above including hypertension, hand surgery. ALLERGIES: None. SOCIAL HISTORY: As above. HOME MEDICATIONS: Dulera, Levaquin, DuoNeb, amlodipine, albuterol and Deltasone. REVIEW OF SYSTEMS: Ten point review of systems is reviewed and as above, otherwise negative. PHYSICAL EXAMINATION: GENERAL: He does appear somewhat confused. VITAL SIGNS: Blood pressure 157/64, pulse 53, respirations 20. NEUROLOGIC: The patient is alert and oriented times 3 with no focal neurologic deficits. HEENT: Sclerae without icterus. Mouth has moist mucous membranes with normal pallor. NECK: No JVD. Carotid upstroke brisk. No bruits bilaterally. LUNGS: Clear to auscultation with unlabored respirations. BACK: No scoliosis or kyphosis. CARDIAC: Regular rate and rhythm with normal S1 and S2. No S3 or S4 noted. No significant rubs, mu rmurs, thrills, or gallops noted throughout the precordium. PMI is not displaced. There is no jose ternal heave. ABDOMEN: Soft, nontender, nondistended. No peritoneal signs present. No hepatosplenomegaly. No ab normal striae. EXTREMITIES: 2+ femoral and 2+ dorsalis pedis pulses. No cyanosis, clubbing, or edema. SKIN: No gross abnormalities. PERTINENT LABORATORY DATA: Hemoglobin 12, creatinine 0.48, CK-MB of 8.2. Troponin 0.077. IMPRESSION: 1. Chest pain. 2. Junctional rhythm. 3. Asthma. 4. Noncompliance. 5. Tobacco abuse. RECOMMENDATIONS: From a CV standpoint, it is difficult to get a good history from Mr. Lizarraga. His tro ponin is in the indeterminate range and his CK-MB is 8.2. Unknown whether this is from demand (most likely) versus unstable angina. At this point, we would recommend conservative therapy. We would av oid beta svetlana therapy due to asthma. May consider Cardizem if his heart rate increases. With hea rt rate in the 50s to 60s, we will defer any negative chronotropic support. Echo with Doppler has be en ordered.
[2017-08-21] MEDS: Docusate 100 MG CAP PO SCH (09:26)
[2017-08-21] MEDS: Enoxaparin Sodium 40 MG/0.4 ML SYRINGE SC SCH (09:26)
[2017-08-21] MEDS: Famotidine/PF 20 mg/2ml Vial SLOW IVP SCH (09:27)
[2017-08-21] MEDS: Nicotine 14 MG PATCH TD SCH (09:27)
--- NOTE | 2017-08-21 11:43 | PDOC.PN ---
- Subjective Encounter Start Date: 08/21/17 Encounter Start Time: 11:00 Subjective: is sitting on bed, no sob -: responds minimally to verbal questions -: is deconditioned, no chest pain now - Objective Resuscitation Status: Resuscitation Status FULL:Full Resuscitation MAR Reviewed: Yes Vital Signs & Weight: Vital Signs (12 hours) Pulse Resp BP Pulse Ox 08/21/17 10:22 54 L 15 100 08/21/17 08:05 53 L 18 99 08/21/17 05:46 49 L 188/86 H 08/21/17 03:53 99 08/21/17 01:50 99 Weight Admit Weight 180 lb Weight 180 lb 15.992 oz Most Recent Monitor Data Heart Rate from ECG 63 NIBP 157/64 NIBP BP-Mean 89 Respiration from ECG 15 SpO2 100 I&O: 08/20/17 08/21/17 08/22/17 06:59 06:59 06:59 Intake Total 1692 1535.2 Output Total 1875 2630 Balance -183 -1094.8 Result Diagrams: 08/21/17 04:25 08/21/17 04:25 Phys Exam - Physical Examination HEENT: PERRLA, sclera anicteric Neck: no JVD, supple Respiratory: no wheezing rhonchi+ Cardiovascular: RRR, no significant murmur Gastrointestinal: soft, non-tender, positive bowel sounds Musculoskeletal: pulses present, edema present Neurological: non-focal, moves all 4 limbs Dx/Plan (1) Acute respiratory failure with hypoxia and hypercapnia Code(s): J96.01 - ACUTE RESPIRATORY FAILURE WITH HYPOXIA; J96.02 - ACUTE RESPIRATORY FAILURE WITH HYPERCAPNIA Status: Resolved (2) Status asthmaticus Code(s): J45.902 - UNSPECIFIED ASTHMA WITH STATUS ASTHMATICUS Status: Acute Qualifiers: Asthma severity: severe Asthma persistence: persistent Qualified Code(s) : J45.52 - Severe persistent asthma with status asthmaticus Comment: resolving (3) HTN (hypertension) Code(s): I10 - ESSENTIAL (PRIMARY) HYPERTENSION Status: Chronic Qualifiers: Hypertension type: essential hypertension (4) Inguinal hernia Code(s): K40.90 - UNIL INGUINAL HERNIA, W/O OBST OR GANGR, NOT SPCF RECUR Status: Chronic Qualifiers: Obstruction and gangrene presence: without obstruction or gangrene Comment: large, will need outpt repair once his copd stabilizes (5) Tobacco abuse Code(s): Z72.0 - TOBACCO USE Status: Chronic (6) Demand ischemia of myocardium Code(s): I24.8 - OTHER FORMS OF ACUTE ISCHEMIC HEART DISEASE Status: Acute (7) Physical deconditioning Code(s): R53.81 - OTHER MALAISE Status: Acute - Plan will need PT eval, oob to chair as tolerated -: has severe deconditioning -: on ceftriaxone, steroids, nebs -: d/w at bedside -: suggest 1/2 inch nitro q8h, oral asp, lasix 20 bid * . Review of Systems - Medications/Allergies Allergies/Adverse Reactions: Allergies Allergy/AdvReac Type Severity Reaction Status Date / Time No Known Drug Allergies Allergy Verified 09/21/16 02:50 Medications: Current Medications Acetaminophen (Tylenol) 650 mg PO Q4H PRN PRN Reason: Headache/Fever or Pain Albuterol/Ipratropium (Duoneb) 3 ml NEB [id number] [facility] Last Admin: 08/21/17 10:22 Dose: 3 ml Benzonatate (Tessalon) 100 mg PO Q4H PRN PRN Reason: Cough Docusate Sodium (Colace) 100 mg PO BID [facility] Last Admin: 08/21/17 09:26 Dose: 100 mg Enoxaparin Sodium (Lovenox) 40 mg SC 0900 [facility] Last Admin: 08/21/17 09:26 Dose: 40 mg Famotidine (Pepcid) 20 mg PO Q12HR [facility] Hydralazine HCl (Apresoline) 10 mg SLOW IVP Q4H PRN PRN Reason: Systolic BP > 180 Last Admin: 08/21/17 05:46 Dose: 10 mg Ceftriaxone Sodium 2 gm/ (Sodium Chloride) 100 mls @ 200 mls/hr IVPB 0500 [facility] Last Admin: 08/21/17 05:46 Dose: 100 mls Potassium Chloride 40 meq/ (Sodium Chloride) 270 mls @ 135 mls/hr IVPB ASDIR PRN PRN Reason: FOR SERUM K+ 2.5 - 3.5 Potassium Chloride 40 meq/ (Device) 100 mls @ 50 mls/hr IVPB ASDIR PRN PRN Reason: FOR SERUM K+ 2.5 - 3.5 Magnesium Sulfate 1 gm/ Sodium (Chloride) 102 mls @ 102 mls/hr IV PRN PRN PRN Reason: MAG LEVEL 1.4 - 2.0 Magnesium Sulfate 2 gm/ Device 100 mls @ 100 mls/hr IVPB [facility]IR PRN PRN Reason: MAGNESIUM < 1.4 Potassium Phosphate 9 mmol/ (Sodium Chloride) 103 mls @ 25.75 mls/hr IVPB [facility]IR PRN PRN Reason: Phosphate 1.0-1.8 Potassium Phosphate 12 mmol/ (Sodium Chloride) 254 mls @ 63.5 mls/hr IV ASDIR PRN PRN Reason: Serum phosphate 0.5-0.9 Potassium Phosphate 15 mmol/ (Sodium Chloride) 255 mls @ 63.75 mls/hr IV ASDIR PRN PRN Reason: Serum Phos < 0.5 Lorazepam (Ativan) 0.5 mg SLOW IVP Q4H PRN PRN Reason: Anxiety/Agitation Magnesium Oxide (Magnesium Oxide) 400 mg PO BIDPRN PRN PRN Reason: FOR SERUM MAG 1.4 - 2.0 Magnesium Oxide (Magnesium Oxide) 800 mg PO PRN PRN PRN Reason: FOR SERUM MAG < 1.4 Methylprednisolone Sodium Succinate (Solu-Medrol) 20 mg IVP Q6HR [facility] Miscellaneous Medication (Phos-Nak) 1 pkt PO TIDPRN PRN PRN Reason: FOR PHOS LEVEL 1.0 - 1.8 Miscellaneous Medication (Phos-Nak) 2 pkt PO TIDPRN PRN PRN Reason: FOR PHOS LEVEL 0.5 - 1.0 Nicotine (Nicoderm Patch) 14 mg TD DAILY [facility] Last Admin: 08/21/17 09:27 Dose: 14 mg Ondansetron HCl (Zofran) 4 mg IVP Q6H PRN PRN Reason: Nausea/Vomiting Potassium Chloride (K-Dur) 40 meq PO ASDIR PRN PRN Reason: FOR SERUM K+ 2.5 - 3.5 Potassium Chloride (Klor-Con) 40 meq PER TUBE [facility]IR PRN PRN Reason: FOR SERUM K+ 2.5-3.5
[2017-08-21] MEDS: Sodium Chloride 0.9% 1,000 ML IV SCH (12:27)
[2017-08-21] MEDS: Furosemide 20 MG TAB PO SCH (13:25)
[2017-08-21] MEDS: Nitroglycerin 2% Ointment 1 INCH/1 GM Packet TOP SCH ×2 (13:26→22:13)
--- NOTE | 2017-08-21 17:48 | EKG ---
Test Reason : STAT Blood Pressure : / mmHG Vent. Rate : 047 BPM Atrial Rate : 047 BPM P-R Int : 152 ms QRS Dur : 106 ms QT Int : 474 ms P-R-T Axes : 077 090 081 degrees QTc Int : 419 ms Sinus bradycardia Rightward axis Moderate voltage criteria for LVH, may be normal variant Early repolarization Borderline ECG When compared with ECG of 20-AUG-2017 17:25, (Unconfirmed) No significant change was found Confirmed by CARLIN AVILEZ, SBill ([id number]) on 08/21/2017 5:47:40 PM Referred By: SKYLA Confirmed By:DR. Madelaine GILLIS MD
[2017-08-21] MEDS: Famotidine 20 MG TAB PO SCH (22:14)
[2017-08-22] MEDS: Docusate 100 MG CAP PO SCH ×3 (01:11→20:47)
[2017-08-22] MEDS ORDERED: CEFTRIAXONE 2GM/50 ML BAG 2 GM in Premix Bag 1 BAG IVPB SCH (05:00)
[2017-08-22] MEDS: Nitroglycerin 2% Ointment 1 INCH/1 GM Packet TOP SCH (05:32)
[2017-08-22 06:18] LABS: Anion Gap 11 mmol/L (10-20); BUN (Urea Nitrogen) 16 mg/dL (8.4-25.7); Calc. Creatinine Clearance 226 mL/min (70-130); Calcium 9.3 mg/dL (7.8-10.44); Carbon Dioxide 29 mmol/L (22-29); Chloride 106 mmol/L (98-107); Estimated GFR-MDRD Greater than 90; Glucose 138 mg/dL (70-105); Potassium 3.8 mmol/L (3.5-5.1); Sodium 142 mmol/L (136-145)
[2017-08-22 06:27] LABS: Band 5 % (5-11); Hemoglobin 11.6 g/dL (14.0-18.0); Lymphocytes 8 % (21-51); MDiff Complete? YES; Mean Corpuscular HGB CONC 31.5 g/dL (32.0-36.0); Mean Corpuscular Hemoglobin 27.4 pg (27.0-31.0); Metamyelocyte 2 % (0-0); Monocytes 9 % (0-10); Myelocyte 1 % (0-0); Neutrophil 75 % (42-75); PLT Morphology Comment Appears Adequate; Platelet Count 223 thou/uL (130-400); RBC Distribution Width 12.6 % (11.5-14.5); RBC Morphology Normal; Red Blood Cell (RBC) Count 4.23 mill/uL (4.70-6.10); White Blood Cell (WBC) Count 9.2 thou/uL (4.8-10.8)
--- NOTE | 2017-08-22 08:48 | PDOC.PULCC ---
CCU Progress Note: Subj/Obj - Subjective Date: 08/22/17 Time: 08:46 Subjective: Feels better. Wants to go home - ROS Review of Systems: shortness of breath - Objective Allergies/Adverse Reactions: Allergies Allergy/AdvReac Type Severity Reaction Status Date / Time No Known Drug Allergies Allergy Verified 09/21/16 02:50 Medications: Current Medications Acetaminophen (Tylenol) 650 mg PO Q4H PRN PRN Reason: Headache/Fever or Pain Albuterol/Ipratropium (Duoneb) 3 ml NEB [id number] [facility] Last Admin: 08/22/17 08:38 Dose: 3 ml Aspirin (Aspirin Chewable) 81 mg PO DAILY [facility] Last Admin: 08/21/17 13:25 Dose: 81 mg Benzonatate (Tessalon) 100 mg PO Q4H PRN PRN Reason: Cough Docusate Sodium (Colace) 100 mg PO BID [facility] Last Admin: 08/22/17 01:11 Dose: Not Given Enoxaparin Sodium (Lovenox) 40 mg SC 0900 [facility] Last Admin: 08/21/17 09:26 Dose: 40 mg Famotidine (Pepcid) 20 mg PO Q12HR [facility] Last Admin: 08/21/17 22:14 Dose: 20 mg Furosemide (Lasix) 20 mg PO 0900,1400 [facility] Last Admin: 08/21/17 13:25 Dose: 20 mg Hydralazine HCl (Apresoline) 10 mg SLOW IVP Q4H PRN PRN Reason: Systolic BP > 180 Last Admin: 08/21/17 05:46 Dose: 10 mg Potassium Chloride 40 meq/ (Sodium Chloride) 270 mls @ 135 mls/hr IVPB ASDIR PRN PRN Reason: FOR SERUM K+ 2.5 - 3.5 Potassium Chloride 40 meq/ (Device) 100 mls @ 50 mls/hr IVPB ASDIR PRN PRN Reason: FOR SERUM K+ 2.5 - 3.5 Magnesium Sulfate 1 gm/ Sodium (Chloride) 102 mls @ 102 mls/hr IV PRN PRN PRN Reason: MAG LEVEL 1.4 - 2.0 Magnesium Sulfate 2 gm/ Device 100 mls @ 100 mls/hr IVPB ASDIR PRN PRN Reason: MAGNESIUM < 1.4 Potassium Phosphate 9 mmol/ (Sodium Chloride) 103 mls @ 25.75 mls/hr IVPB ASDIR PRN PRN Reason: Phosphate 1.0-1.8 Potassium Phosphate 12 mmol/ (Sodium Chloride) 254 mls @ 63.5 mls/hr IV ASDIR PRN PRN Reason: Serum phosphate 0.5-0.9 Potassium Phosphate 15 mmol/ (Sodium Chloride) 255 mls @ 63.75 mls/hr IV ASDIR PRN PRN Reason: Serum Phos < 0.5 CEFTRIAXONE 2GM/50 ML BAG 2 gm (/ Device) 50 mls @ 200 mls/hr IVPB 0500 [facility] Last Admin: 08/22/17 05:33 Dose: 50 mls Lorazepam (Ativan) 0.5 mg SLOW IVP Q4H PRN PRN Reason: Anxiety/Agitation Magnesium Oxide (Magnesium Oxide) 400 mg PO BIDPRN PRN PRN Reason: FOR SERUM MAG 1.4 - 2.0 Magnesium Oxide (Magnesium Oxide) 800 mg PO PRN PRN PRN Reason: FOR SERUM MAG < 1.4 Methylprednisolone Sodium Succinate (Solu-Medrol) 20 mg IVP Q6HR [facility] Last Admin: 08/22/17 05:32 Dose: 20 mg Miscellaneous Medication (Phos-Nak) 1 pkt PO TIDPRN PRN PRN Reason: FOR PHOS LEVEL 1.0 - 1.8 Miscellaneous Medication (Phos-Nak) 2 pkt PO TIDPRN PRN PRN Reason: FOR PHOS LEVEL 0.5 - 1.0 Nicotine (Nicoderm Patch) 14 mg TD DAILY [facility] Last Admin: 08/21/17 09:27 Dose: 14 mg Nitroglycerin (Nitro-Bid 2% Ointment) 0.5 inch TOP Q8HR [facility] Last Admin: 08/22/17 05:32 Dose: 0.5 inch Ondansetron HCl (Zofran) 4 mg IVP Q6H PRN PRN Reason: Nausea/Vomiting Potassium Chloride (K-Dur) 40 meq PO ASDIR PRN PRN Reason: FOR SERUM K+ 2.5 - 3.5 Potassium Chloride (Klor-Con) 40 meq PER TUBE ASDIR PRN PRN Reason: FOR SERUM K+ 2.5-3.5 OCT Reviewed: Yes Vital Signs and I&O: Vital Signs Temp 98.3 F 08/22/17 04:00 Pulse 66 08/22/17 08:38 Resp 17 08/22/17 08:38 BP 147/70 H 08/21/17 15:35 Pulse Ox 99 08/22/17 02:38 Intake & Output 08/21/17 08/22/17 08/22/17 18:59 06:59 18:59 Intake Total 439 544 Output Total 1675 710 Balance -1236 -166 Weight 178 lb 12.718 oz Intake: Intake, IV Amount 439 244 Sodium Chloride 0.9% 1, 439 244 000 ml @ 50 mls/hr IV . Q20H [facility] Rx#:[id number] Oral 300 Output: Output, [place] 1673 710 Other: Voiding Method Indwelling Catheter Indwelling Catheter # Bowel Movements 1 Vent Setting: extubated CCU Progress Note: Exam - Physical Exam Constitutional: NAD HEENT: PERRLA, moist MMs, sclera anicteric Neck: no nodes, no JVD Cardiovascular: RRR, no significant murmur Respiratory: wheezes Gastrointestinal: soft, non-tender Musculoskeletal: no edema Neurological: non-focal, normal sensation, moves all 4 limbs Lymphatic: no nodes Psychiatric: normal affect, A&O x 3 Skin: no rash - Labs Result Diagrams: 08/22/17 05:10 08/22/17 05:10 Lab results: Laboratory Results - last 24 hr 08/22/17 08/22/17 05:10 05:10 WBC 9.2 RBC 4.23 L Hgb 11.6 L Hct 36.8 L MCV 87.0 MCH 27.4 MCHC 31.5 L RDW 12.6 Plt Count 223 MPV 7.0 L Neutrophils % (Manual) 75 Band Neuts % (Manual) 5 Lymphocytes % (Manual) 8 L Monocytes % (Manual) 9 Metamyelocytes % (Man) 2 H Myelocytes % 1 H Plt Morphology Comment Appears Adequate RBC Morph Comment Normal Sodium 142 Potassium 3.8 Chloride 106 Carbon Dioxide 29 Anion Gap 11 BUN 16 Creatinine 0.45 L Estimated GFR (MDRD) Greater than 90 Glucose 138 H Calcium 9.3 CCU Progress Note: A/P - Problems (1) Acute respiratory failure with hypoxia and hypercapnia Current Visit: Yes Status: Resolved Code(s): J96.01 - ACUTE RESPIRATORY FAILURE WITH HYPOXIA; J96.02 - ACUTE RESPIRATORY FAILURE WITH HYPERCAPNIA (2) Status asthmaticus Current Visit: Yes Status: Acute Code(s): J45.902 - UNSPECIFIED ASTHMA WITH STATUS ASTHMATICUS Qualifiers: Asthma severity: severe Asthma persistence: persistent Qualified Code(s) : J45.52 - Severe persistent asthma with status asthmaticus - Plan Plan: Transfer to floor Begin transitioning to oral meds hopefully home soon
[2017-08-22] MEDS: Famotidine 20 MG TAB PO SCH ×2 (09:29→20:48)
[2017-08-22] MEDS: Furosemide 20 MG TAB PO SCH ×2 (09:30→14:50)
[2017-08-22] MEDS: Enoxaparin Sodium 40 MG/0.4 ML SYRINGE SC SCH (09:30)
[2017-08-22] MEDS: Nicotine 14 MG PATCH TD SCH (09:31)
[2017-08-22 10:28] LABS: Troponin I 0.016 ng/mL (< 0.028)
[2017-08-22 10:35] LABS: CKMB 17.6 ng/mL (0-6.6)
[2017-08-22] MEDS ORDERED: Sterile Water 0 ML ONE (11:53)
--- NOTE | 2017-08-22 12:07 | CON ---
DATE OF SERVICE: 08/22/2017 SUBJECTIVE: Mr. Lizarraga is doing well. His breathing has improved. No current complaints. No chest p ain or pressure noted. PHYSICAL EXAMINATION: VITAL SIGNS: Blood pressure 130/63, pulse 91, temperature afebrile. LUNGS: Mild rales and wheezing bilaterally. HEART: Regular rate and rhythm. ABDOMEN: Soft, nontender, and nondistended. EXTREMITIES: No edema. PERTINENT LABORATORY DATA: CK-MB of 17 with troponin of 0.016. IMPRESSION: 1. Junctional rhythm now resolved. 2. Chest pain, resolved. 3. Elevated CK-MB. RECOMMENDATIONS: His CK-MB and troponin are not reflective of acute myocardial injury. His LVEF was 60%-65% on echo yesterday. At this point, I recommend conservative therapy. I do not feel his symp toms are related to underlying angina. Continue aggressive pulmonary support.
--- NOTE | 2017-08-22 13:05 | PDOC.PN ---
- Subjective Encounter Start Date: 08/22/17 Encounter Start Time: 11:10 Subjective: is sitting in chair -: says his swelling in hands has come down and can move fingers better -: eating better, no sob - Objective Resuscitation Status: Resuscitation Status FULL:Full Resuscitation MAR Reviewed: Yes Vital Signs & Weight: Vital Signs (12 hours) Temp Pulse Pulse Pulse Resp BP BP 08/22/17 09:05 88 84 130/63 133/63 08/22/17 08:38 66 17 08/22/17 08:00 98.7 F 08/22/17 04:00 98.3 F 08/22/17 02:38 Pulse Ox 08/22/17 09:05 08/22/17 08:38 08/22/17 08:00 08/22/17 04:00 08/22/17 02:38 99 Weight Admit Weight 180 lb Weight 178 lb 12.718 oz Most Recent Monitor Data Heart Rate from ECG 91 NIBP 130/63 NIBP BP-Mean 88 Respiration from ECG 20 SpO2 93 I&O: 08/21/17 08/22/17 08/23/17 06:59 06:59 06:59 Intake Total 1535.2 983 Output Total 2630 2385 435 Balance -1094.8 -1402 -435 Result Diagrams: 08/22/17 05:10 08/22/17 05:10 Phys Exam - Physical Examination HEENT: PERRLA, moist MMs Neck: no JVD, supple Respiratory: no wheezing, no rales rhonchi+ Cardiovascular: RRR, no significant murmur Gastrointestinal: soft, non-tender, positive bowel sounds Musculoskeletal: no edema, pulses present Neurological: non-focal, moves all 4 limbs Psychiatric: A&O x 3 Dx/Plan (1) Acute respiratory failure with hypoxia and hypercapnia Code(s): J96.01 - ACUTE RESPIRATORY FAILURE WITH HYPOXIA; J96.02 - ACUTE RESPIRATORY FAILURE WITH HYPERCAPNIA Status: Resolved Comment: extubated (2) Status asthmaticus Code(s): J45.902 - UNSPECIFIED ASTHMA WITH STATUS ASTHMATICUS Status: Acute Qualifiers: Asthma severity: severe Asthma persistence: persistent Qualified Code(s) : J45.52 - Severe persistent asthma with status asthmaticus Comment: resolving (3) HTN (hypertension) Code(s): I10 - ESSENTIAL (PRIMARY) HYPERTENSION Status: Chronic Qualifiers: Hypertension type: essential hypertension (4) Inguinal hernia Code(s): K40.90 - UNIL INGUINAL HERNIA, W/O OBST OR GANGR, NOT SPCF RECUR Status: Chronic Qualifiers: Obstruction and gangrene presence: without obstruction or gangrene Comment: large, will need outpt repair once his copd stabilizes (5) Tobacco abuse Code(s): Z72.0 - TOBACCO USE Status: Chronic (6) Demand ischemia of myocardium Code(s): I24.8 - OTHER FORMS OF ACUTE ISCHEMIC HEART DISEASE Status: Acute (7) Physical deconditioning Code(s): R53.81 - OTHER MALAISE Status: Acute - Plan bradycardic, not symptomatic -: may tx to medical floor -: is on oral lasix, ceftriaxone, aspirin, nebs and prednisone -: may dc nitropaste -: PT to mobilize as tolerated, oral diet * . Review of Systems - Medications/Allergies Allergies/Adverse Reactions: Allergies Allergy/AdvReac Type Severity Reaction Status Date / Time No Known Drug Allergies Allergy Verified 09/21/16 02:50 Medications: Current Medications Acetaminophen (Tylenol) 650 mg PO Q4H PRN PRN Reason: Headache/Fever or Pain Albuterol/Ipratropium (Duoneb) 3 ml NEB [id number] [facility] Last Admin: 08/22/17 08:38 Dose: 3 ml Aspirin (Aspirin Chewable) 81 mg PO DAILY [facility] Last Admin: 08/22/17 09:32 Dose: 81 mg Benzonatate (Tessalon) 100 mg PO Q4H PRN PRN Reason: Cough Cefdinir (Omnicef) 600 mg PO DAILY [facility] Docusate Sodium (Colace) 100 mg PO BID [facility] Last Admin: 08/22/17 09:30 Dose: 100 mg Enoxaparin Sodium (Lovenox) 40 mg SC 0900 [facility] Last Admin: 08/22/17 09:30 Dose: 40 mg Famotidine (Pepcid) 20 mg PO Q12HR [facility] Last Admin: 08/22/17 09:29 Dose: 20 mg Furosemide (Lasix) 20 mg PO 0900,1400 [facility] Last Admin: 08/22/17 09:30 Dose: 20 mg Hydralazine HCl (Apresoline) 10 mg SLOW IVP Q4H PRN PRN Reason: Systolic BP > 180 Last Admin: 08/21/17 05:46 Dose: 10 mg Nicotine (Nicoderm Patch) 14 mg TD DAILY [facility] Last Admin: 08/22/17 09:31 Dose: 14 mg Ondansetron HCl (Zofran) 4 mg IVP Q6H PRN PRN Reason: Nausea/Vomiting Prednisone (Prednisone) 40 mg PO 1300 [facility]
[2017-08-22] MEDS: predniSONE 20 MG TAB PO SCH (14:50)
[2017-08-23] MEDS: Famotidine 20 MG TAB PO SCH (08:48)
[2017-08-23] MEDS: Furosemide 20 MG TAB PO SCH ×2 (08:48→14:34)
[2017-08-23] MEDS: Docusate 100 MG CAP PO SCH (08:49)
[2017-08-23] MEDS: Nicotine 14 MG PATCH TD SCH (08:49)
[2017-08-23] MEDS: Enoxaparin Sodium 40 MG/0.4 ML SYRINGE SC SCH (08:49)
[2017-08-23] MEDS ORDERED: Cefdinir 300 MG CAP PO SCH (09:00)
[2017-08-23 10:17] VITALS: BMI 30.1
[2017-08-23 11:20] VITALS: TEMP 98
--- NOTE | 2017-08-23 11:31 | PRG ---
DATE OF SERVICE: 08/23/2017 The patient is doing better, had no acute complaints. PHYSICAL EXAMINATION: VITAL SIGNS: Temperature is 98.1, pulse 69, respirations 16, O2 sat 97% on 2 liters, blood pressure 151/72. HEENT: Unremarkable. NECK: No JVD. CHEST: Clear without wheezing. CARDIAC: S1 and S2 regular. ABDOMEN: Soft. EXTREMITIES: No edema. ASSESSMENT: 1. Chronic obstructive pulmonary disease with exacerbation. 2. Atypical chest pain. RECOMMENDATION: From his pulmonary standpoint, he seems stable for discharge. He has been advised n ot to smoke. He should complete 7 days of antibiotics and have taper steroids over a couple of weeks . He should continue his oxygen at home. He should resume his home inhalers which in the past consi sted of Dulera and albuterol. I would be happy to see him in the office in the future for followup. He should not need to come back for 3-4 weeks.
[2017-08-23] MEDS: predniSONE 20 MG TAB PO SCH (12:21)
[2017-08-23 13:22] VITALS: BP 160/73
--- NOTE | 2017-08-23 14:35 | PRG ---
DATE OF SERVICE: 08/23/2017 SUBJECTIVE: Mr. Lizarraga is doing well. Shortness of breath has improved. No chest pain or pressure no praveen. OBJECTIVE: VITAL SIGNS: Blood pressure 151/72, pulse 64, respirations 20. LUNGS: Mild wheezing bilaterally. CARDIAC: Regular rate and rhythm. ABDOMEN: Soft, nontender, nondistended. EXTREMITIES: No edema. IMPRESSION: 1. Bradycardia. 2. Chest pain. RECOMMENDATIONS: Mr. Lizarraga's episode of chest pain occurred shortly after extubation. At this point, he appeared stable. No current symptoms. His LVEF is normal. From a CV standpoint, I have no furt her recommendations. Okay for discharge.
--- NOTE | 2017-08-23 23:00 | DIS ---
DATE OF ADMISSION: 08/16/2017 DATE OF DISCHARGE: 08/23/2017 DISCHARGE DIAGNOSES: 1. Acute on chronic hypoxemic respiratory failure requiring mechanical ventilation. 2. Chronic obstructive pulmonary disease with acute exacerbation, resolving. 3. Tobacco abuse. 4. Noncompliance. 5. Hypernatremia, resolved. 6. Indeterminate troponin I secondary to demand ischemia. 7. Hypertension. CONSULTATIONS: Dr. Moy and Dr. Frey with Pulmonology Service. Dr. Sigala with Cardiology Ser vice. PERTINENT LABORATORY AND X-RAY FINDINGS: Sodium ranged between 138-148. Lactic acid level ranged be tween 1.0-3.8, troponin I ranged between 0.010-0.077. BNP 13.2. CBC showed a hemoglobin ranging bet ween 10.8-12.0. Influenza A and B antigen dated 08/16/2017 negative. Blood cultures x2 from 018 showed no growth at 5 days. Portable chest x-ray dated 08/16/2017 showed left perihilar infiltra te. A 2D transthoracic echocardiogram dated 08/21/2017 showed ejection fraction of 60-65%. Mild lef t atrial enlargement. Portable chest x-ray dated 08/21/2017 showed stable radiographic appearance of the chest with mild pulmonary vascular prominence. HOSPITAL COURSE: Patient was initially admitted to the Critical Care Unit after presenting with acut e hypoxemic respiratory failure and COPD exacerbation. The patient required mechanical ventilation a fter failed trial of BiPAP noninvasive mechanical ventilation. The patient was monitored by the [facility] in the ICU on mechanical ventilation for approximately 48-72 hours. The patient wa s subsequently extubated transitioning to oxygen by nasal cannula. The patient experienced some ches t pain symptoms post-extubation with evaluation by the Cardiology Service. Recommendations were for general medical management and no acute intervention. The patient was slow to clinically progress tr ansitioning out of the ICU to the telemetry unit receiving IV antibiotic therapy, IV Solu-Medrol, and tobacco cessation counseling. Patient subsequently stabilized respiratory weston and ready for discha rge on 08/23/2017. DISCHARGE MEDICATIONS: 1. Omnicef 600 mg 1 tab p.o. daily x5 days. 2. Albuterol sulfate q.i.d. p.r.n. 3. Amlodipine 5 mg one tablet p.o. daily. 4. Enteric coated aspirin 81 mg 1 tab p.o. daily. 5. DuoNeb 3 mL nebulized q.4 hours p.r.n. 6. Dulera 200 mcg/5 mcg 2 puffs inhaled b.i.d. 7. Prednisone 20 mg 2 tabs p.o. daily x 3 days, followed by 1 tab p.o. daily x 3 days, followed by h correction a tab p.o. daily x3 days. FOLLOWUP: The patient will follow up with his primary care provider at [facility] in [facility] 7 days of discharge. The patient may also follow up with Dr. Moy with Pulmonology Service in 2-3 weeks after discharge. CONDITION ON DISCHARGE: Fair. ACTIVITY: Ad vida. DIET: Heart healthy. SPECIAL INSTRUCTIONS: Oxygen supplementation at 2-3 liters per minute by nasal cannula. CODE STATUS: Full. DISPOSITION: Home 08/23/2017.
== END 2017-08-23 18:15 | disposition home or self-care (01) | DRG 208 ==
LOC: ERS 02:47 → ERHOLD 05:06 → CCU 11:36 → 2NO 08-22 16:50
PROVIDERS: ADMIT Internal Medicine; ATTEND Internal Medicine
PROC: 0BH17EZ Insertion of Endotracheal Airway into Trachea, Via Natural or Artificial Opening (ICD-10-PCS; principal; 2017-08-16)
PROC: 5A1945Z Respiratory Ventilation, 24-96 Consecutive Hours (ICD-10-PCS; 2017-08-16)
DX: J96.21 Acute and chronic respiratory failure with hypoxia (principal); J45.52 Severe persistent asthma with status asthmaticus; I24.8 Other forms of acute ischemic heart disease; J44.1 Chronic obstructive pulmonary disease with (acute) exacerbation; E87.0 Hyperosmolality and hypernatremia; I10 Essential (primary) hypertension; F17.210 Nicotine dependence, cigarettes, uncomplicated; Z91.19 Patient's noncompliance with other medical treatment and regimen; J96.02 Acute respiratory failure with hypercapnia; K40.90 Unilateral inguinal hernia, without obstruction or gangrene, not specified as recurrent
CPT/HCPCS: 31500; 36415; 36416; 51702; 71045; 80048; 80053; 81003; 82550; 82553; 82805; 83605; 83880; 84484; 85025; 87040; 93005; 93010; 93306; 94002; 94003; 94640; 94660; 96361; 96365; 96366; 96367; 96368; 96375; A4216; G8978-GP-CK; G8979-GP-CJ; J0360; J0456; J0461; J0696; J1250; J1650; J1940; J2060; J2250; J2270; J2704; J2920; J2930; J3475; J7050; J7506; J7620; S0028

== ENCOUNTER 2017-12-12 12:40 | Emergency (ER) | payer SELFPAY ==
[2017-12-12 13:39] LABS: Hemoglobin 14.3 g/dL (14.0-18.0); Mean Corpuscular HGB CONC 33.1 g/dL (32.0-36.0); Mean Corpuscular Volume 84.4 fl (80.0-94.0); Mean Platelet Volume 6.6 fL (7.4-10.4); Platelet Count 281 thou/uL (130-400); RBC Distribution Width 12.5 % (11.5-14.5); Red Blood Cell (RBC) Count 5.12 mill/uL (4.70-6.10)
[2017-12-12 13:53] LABS: Band 8 % (5-11); Eosinophils 8 % (0-10); Lymphocytes 20 % (21-51); MDiff Complete? YES; Monocytes 14 % (0-10); Neutrophil 43 % (42-75); PLT Morphology Comment Appears Adequate; RBC Morphology Normal; Reactive Lymphocytes 7 % (0-10)
[2017-12-12] MEDS ORDERED: Ondansetron ODT 4 MG TAB ONE (13:57)
[2017-12-12 14:15] LABS: ALT (SGPT) 31 U/L (8-55); AST (SGOT) 33 U/L (5-34); Albumin 3.8 g/dL (3.5-5.0); Alkaline Phosphatase 86 U/L (40-150); Anion Gap 13 mmol/L (10-20); BUN (Urea Nitrogen) 11 mg/dL (8.4-25.7); Bilirubin, Total 0.2 mg/dL (0.2-1.2); Calc. Creatinine Clearance 0 mL/min (70-130); Calcium 9.9 mg/dL (7.8-10.44); Carbon Dioxide 22 mmol/L (22-29); Chloride 108 mmol/L (98-107); Estimated GFR-MDRD Greater than 90; Globulin 3.5 g/dL (2.4-3.5); Glucose 94 mg/dL (70-105); Lipase 11 U/L (8-78); Potassium 4.2 mmol/L (3.5-5.1); Protein, Total 7.3 g/dL (6.0-8.3); Sodium 139 mmol/L (136-145)
[2017-12-12 14:54] LABS: Bilirubin Negative (Negative); Blood, Urine Negative (Negative); Clarity CLEAR (Clear); Glucose, Urine (Dipstick) Negative (Negative); Leukocyte Negative (Negative); Nitrite Negative (Negative); Protein, Urine (Dipstick) Negative (Neg-Trace); Specific Gravity, Urine 1.026 (1.002-1.036); Urobilinogen 0.2 mg/dL (0.2-1.0); pH, Urine 5.5 (5.0-9.0)
== END 2017-12-12 15:27 | disposition home or self-care (01) ==
LOC: ERS 12:40
DX: R19.7 Diarrhea, unspecified (principal); I10 Essential (primary) hypertension; J44.9 Chronic obstructive pulmonary disease, unspecified; Z87.891 Personal history of nicotine dependence
CPT/HCPCS: 80053; 81003; 83690; 85025; 96372; Q0162

== ENCOUNTER 2017-12-26 09:09 | Emergency (ER) | payer SELFPAY ==
--- NOTE | 2017-12-26 10:57 | RAD ---
TWO VIEW CHEST: COMPARISON: 08/21/17. INDICATION: Cough and congestion. FINDINGS: Subtle nodular densities are seen at the lateral right mid lung zone with adjacent linear density. C ardiac silhouette is normal in size. No effusion or pneumothorax. IMPRESSION: Subtle nodular density at the lateral right mid lung zone. Underlying neoplastic nodule is the diagn osis of exclusion. Recommend dedicated, followup CT thorax for further evaluation. CODE T POS: [facility]
== END 2017-12-26 10:43 | disposition home or self-care (01) ==
LOC: ERS 09:09
DX: J30.9 Allergic rhinitis, unspecified (principal); R91.1 Solitary pulmonary nodule; I10 Essential (primary) hypertension; J44.9 Chronic obstructive pulmonary disease, unspecified; Z87.891 Personal history of nicotine dependence
CPT/HCPCS: 71046

== ENCOUNTER 2018-06-08 04:44 | Emergency (ER) | payer SELFPAY ==
[2018-06-08] MEDS ORDERED: predniSONE 20 MG TAB ONE (05:02)
== END 2018-06-08 05:48 | disposition home or self-care (01) ==
LOC: ERS 04:44
DX: J44.1 Chronic obstructive pulmonary disease with (acute) exacerbation (principal); I10 Essential (primary) hypertension; Z87.891 Personal history of nicotine dependence; Z79.899 Other long term (current) drug therapy
CPT/HCPCS: 93005; 94640; J7506; J7620

== ENCOUNTER 2018-06-22 16:42 | Emergency (ER) | payer SELFPAY ==
[2018-06-22] MEDS ORDERED: methylPREDNISolone Sod Succ/PF 125 MG/2 ML VIAL ONE (17:41)
[2018-06-22] MEDS ORDERED: Nitroglycerin 2% Ointment 1 INCH/1 GM Packet ONE (17:41)
[2018-06-22 17:42] LABS: #Basophils 0.1 thou/uL (0.0-0.2); #Eosinphils 0.1 thou/uL (0.0-0.7); #Lymphocytes 1.2 thou/uL (1.20-3.40); #Monocytes 0.3 thou/uL (0.11-0.59); #Neutrophils 5.1 thou/uL (1.40-6.50); %Basophils 0.8 % (0.0-1.0); %Eosinophils 1.5 % (0.0-10.0); %Lymphocytes 17.2 % (21.0-51.0); %Monocytes 4.9 % (0.0-10.0); %Neutrophils 75.6 % (42.0-75.0); Hemoglobin 14.6 g/dL (14.0-18.0); Mean Corpuscular HGB CONC 32.2 g/dL (32.0-36.0); Mean Corpuscular Hemoglobin 26.6 pg (27.0-31.0); Mean Corpuscular Volume 82.7 fL (78.0-98.0); Platelet Count 235 thou/uL (130-400); RBC Distribution Width 12.4 % (11.5-14.5); White Blood Cell (WBC) Count 6.8 thou/uL (4.8-10.8)
[2018-06-22 18:01] LABS: ALT (SGPT) 97 U/L (8-55); Albumin 4.2 g/dL (3.5-5.0); Alkaline Phosphatase 111 U/L (40-150); Anion Gap 16 mmol/L (10-20); BUN (Urea Nitrogen) 15 mg/dL (8.4-25.7); Bilirubin, Total 0.3 mg/dL (0.2-1.2); CK (CPK) 326 U/L (30-200); CKMB 5.5 ng/mL (0-6.6); Calc. Creatinine Clearance 0 mL/min (70-130); Carbon Dioxide 22 mmol/L (22-29); Chloride 108 mmol/L (98-107); Estimated GFR-MDRD Greater than 90; Globulin 3.4 g/dL (2.4-3.5); Glucose 107 mg/dL (70-105); Lipase 9 U/L (8-78); Potassium 5.6 mmol/L (3.5-5.1); Protein, Total 7.6 g/dL (6.0-8.3); Sodium 140 mmol/L (136-145); Troponin I Less than 0.010 ng/mL (< 0.028)
[2018-06-22 18:08] LABS: AST (SGOT) 59 U/L (5-34)
--- NOTE | 2018-06-22 20:25 | RAD ---
FRONTAL RADIOGRAPH CHEST 06/22/18 COMPARISON: 08/21/17 and prior. HISTORY: Dyspnea. FINDINGS: There is increased linear interstitial density bilaterally, stable. The lungs are hyperinflated, evid ence of air trapping. No pneumo thorax or pleural fluid is seen and there is no focal consolidation o r alveolar edema. IMPRESSION: Interstitial prominence and pulmonary hyperinflation with no focal consolidation or alveolar edema. F indings suggests COPD in the proper clinical setting. POS: [facility]
== END 2018-06-22 18:32 | disposition home or self-care (01) ==
LOC: SCSER 16:42
DX: J44.1 Chronic obstructive pulmonary disease with (acute) exacerbation (principal); I10 Essential (primary) hypertension; Z87.891 Personal history of nicotine dependence; Z79.899 Other long term (current) drug therapy
CPT/HCPCS: 71045; 80053; 82553; 83690; 83880; 84484; 85025; 93005; 96374; J2930; J7620

== ENCOUNTER 2018-12-10 08:35 | Emergency (ER) | payer SELFPAY ==
[2018-12-10] MEDS ORDERED: Acetaminophen 500 MG TAB ONE (08:58)
--- NOTE | 2018-12-10 09:46 | CT ---
Head CT without contrast 12/10/2018: HISTORY: Headache TECHNIQUE: Axial CT imaging at 5 mm intervals from vertex through skull base without contrast FINDINGS: Mild mucosal thickening of imaged right maxillary sinus. No acute osseous abnormality. No i ntracranial hemorrhage, midline shift, mass effect, or ventricular enlargement. IMPRESSION: No acute findings.
== END 2018-12-10 09:53 | disposition home or self-care (01) ==
LOC: SCSER 08:35
DX: R51 Headache (principal); I10 Essential (primary) hypertension; J44.9 Chronic obstructive pulmonary disease, unspecified; Z87.891 Personal history of nicotine dependence; Z79.899 Other long term (current) drug therapy
CPT/HCPCS: 70450

== ENCOUNTER 2020-02-26 10:08 | Outpatient (CLI) | payer MEDICARE ==
--- NOTE | 2020-02-26 13:24 | CT ---
CT ABDOMEN AND PELVIS WITH IV CONTRAST: INDICATION: Hernia. COMPARISON: No comparison. FINDINGS: Images through the lung bases reveal a 1.6 cm nodule in the posterior left lower lobe. Further evalu ation is indicated with CT chest exam. Liver shows low attenuation suggesting fatty infiltration. The liver is otherwise unremarkable. Spl een and pancreas unremarkable. Adrenal glands show a nodular appearance to both adrenal glands with both adrenals showing evidence o f a 1.5 cm nodule. These adrenal nodules are not adequately characterized on this single-phase study . Review of kidneys shows a 2.5 cm cyst of the superior right kidney. Kidneys are otherwise unremarkab le. A tiny low-density focus in the left renal cortex is subcentimeter and too small to characterize . Aorta shows atherosclerotic change but without aneurysm or dissection. Images of the intestinal tract show a large right inguinal hernia. Small and large bowel herniate in to the inguinal ring and into the right scrotum which is significantly dilated. There is no evidence of intestinal obstruction or entrapment. The small and large bowel otherwise appear unremarkable. The right colon and right terminal ileum herniate into this inguinal hernia. The appendix is identif ied and appears unremarkable within this hernia. The urinary bladder is unremarkable. Mild prostatic hypertrophy. The osseous structures are unremarkable. IMPRESSION: 1. Nodule in the posterior left lower lobe of the left lung. Further investigation with CT chest is recommended. 2. Both adrenal glands show nonspecific adrenal nodules. Suggest followup CT abdomen without contra st in 6 months to confirm stability. 3. A large right inguinal hernia with right colon and distal ileum herniated into the right scrotum as described above. No evidence of bowel obstruction or strangulation. 4. Renal cyst as described. POS: [facility]
== END 2020-02-26 10:09 | disposition home or self-care (01) ==
LOC: SCSCT 10:08
PROVIDERS: ATTEND Specialist
DX: K40.90 Unilateral inguinal hernia, without obstruction or gangrene, not specified as recurrent (principal); R91.1 Solitary pulmonary nodule; E27.8 Other specified disorders of adrenal gland; N28.1 Cyst of kidney, acquired
CPT/HCPCS: 74177

== ENCOUNTER 2020-07-03 15:25 | Outpatient (CLI) | payer MEDICARE ==
--- NOTE | 2020-07-03 15:57 | RAD ---
TWO VIEWS CHEST: DATE: 07/03/2020. PROVIDED CLINICAL HISTORY: Preop. COMPARISON: 12/26/2017. FINDINGS: Cardiac and mediastinal silhouette is within normal limits. Scattered areas of parenchymal scarring are seen. No focal consolidation, pleural fluid, or pneumothorax apparent. IMPRESSION: No evidence for an acute cardiopulmonary process. POS: [facility]
[2020-07-03 16:48] LABS: #Eosinphils 0.8 10x3/uL (0.0-0.5); #Monocytes 0.5 10x3/uL (0.0-1.1); %Basophils 0.6 % (0.0-2.0); %Eosinophils 10.6 % (0.0-6.0); %Lymphocytes 39.4 % (18.0-47.0); %Monocytes 7.1 % (0.0-10.0); %Neutrophils 41.9 % (40.0-75.0); Hemoglobin 15.7 g/dL (14.0-18.0); Mean Corpuscular HGB CONC 32.3 G/DL (32.0-36.0); Mean Corpuscular Hemoglobin 28.2 PG (27.0-33.0); Mean Corpuscular Volume 87.4 fl (80.0-100.0); Mean Platelet Volume 9.3 fl (7.4-10.4); Platelet Count 261 10x3/uL (130-400); RBC Distribution Width 13.4 % (11.5-14.5); Red Blood Cell (RBC) Count 5.56 10x6/uL (4.40-5.80); White Blood Cell (WBC) Count 7.1 10x3/uL (4.5-11.0)
[2020-07-03 17:14] LABS: Anion Gap 16 mmol/L (10-20); BUN (Urea Nitrogen) 17 mg/dL (8.4-25.7); Calc. Creatinine Clearance 0 mL/min (70-130); Calcium 9.6 mg/dL (7.8-10.44); Carbon Dioxide 26 mmol/L (22-29); Chloride 105 mmol/L (98-107); Estimated GFR-MDRD Greater than 90; Glucose 90 mg/dL (70-105); Potassium 4.6 mmol/L (3.5-5.1); Sodium 142 mmol/L (136-145)
[2020-07-04 11:01] LABS: SARS-CoV-2 MS2 Positive; SARS-CoV-2 N Gene Negative; SARS-CoV-2 S Gene Negative; SARS-CoV-2 by NAA Not Detected (NotDetected); SARS-CoV-2 orf1ab Negative
== END 2020-07-03 15:26 | disposition home or self-care (01) ==
LOC: LABBT 15:25
PROVIDERS: ATTEND Specialist
DX: Z01.818 Encounter for other preprocedural examination (principal); Z01.812 Encounter for preprocedural laboratory examination; Z20.828 Contact with and (suspected) exposure to other viral communicable diseases; K40.90 Unilateral inguinal hernia, without obstruction or gangrene, not specified as recurrent
CPT/HCPCS: 71046; 80048; 85025; U0003; 87635

== ENCOUNTER 2020-07-07 06:04 | Inpatient (IN) | payer MEDICARE, MEDICAID ==
[2020-07-06 13:30] VITALS: BMI 26.9
[2020-07-07] MEDS ORDERED: Acetaminophen 500 MG TAB ONE (06:30)
[2020-07-07] MEDS ORDERED: Ketorolac Tromethamine 30 MG/ML VIAL ONE (06:30)
[2020-07-07] MEDS ORDERED: Lidocaine 1% w/Epinephrine 1:100K 20 ML VIAL ONE (06:45)
[2020-07-07] MEDS ORDERED: Bupivacaine 0.25% HCL 30 ML VIAL ONE (06:45)
[2020-07-07] MEDS ORDERED: Fentanyl 100 MCG/2 ML VIAL ONE ×3 (07:40→13:53)
[2020-07-07] MEDS ORDERED: Albuterol Sulfate HFA (OR ONLY) ONE (08:23)
[2020-07-07] MEDS ORDERED: Meperidine HCl/PF 25 MG/ML VIAL SLOW IVP PRN (09:35)
[2020-07-07] MEDS ORDERED: Promethazine HCl 25 MG/ML VIAL SLOW IVP PRN (09:35)
[2020-07-07] MEDS ORDERED: HYDROmorphone 2 MG/ML VIAL SLOW IVP PRN (09:35)
[2020-07-07] MEDS ORDERED: Promethazine HCl 25 MG/ML VIAL IM PRN (09:35)
[2020-07-07] MEDS ORDERED: Morphine 2 MG/ML VIAL SLOW IVP PRN (11:27)
[2020-07-07] MEDS ORDERED: Dextrose 50% Abboject 50 ML SYRINGE SLOW IVP PRN (11:27)
[2020-07-07] MEDS ORDERED: Dextrose 5% in Water 1,000 ML IV PRN (11:27)
[2020-07-07] MEDS ORDERED: Ondansetron PF 4 MG/2 ML Vial IVP PRN (11:27)
[2020-07-07] MEDS ORDERED: Morphine 4 MG/ML VIAL SLOW IVP PRN (11:27)
[2020-07-07] MEDS ORDERED: Naloxone HCl 0.4 mg/ml Vial ONE (11:49)
[2020-07-07] MEDS ORDERED: Dexamethasone 20 MG/5 ML VIAL ONE (12:28)
[2020-07-07] MEDS ORDERED: ePHEDrine 50 MG/ML VIAL ONE (12:28)
[2020-07-07] MEDS ORDERED: PHENYLEPHRINE-NS 100 MCG/ML 10 ML SYRINGE ONE (12:28)
[2020-07-07] MEDS ORDERED: Ondansetron PF 4 MG/2 ML Vial ONE (12:28)
[2020-07-07] MEDS ORDERED: PROPOFOL 200 MG/20 ML VIAL ONE (12:28)
[2020-07-07] MEDS ORDERED: Glycopyrrolate 0.2 MG/ML 5 ML SYRINGE ONE (12:28)
[2020-07-07] MEDS ORDERED: Lidocaine 1% PF 5 ML VIAL ONE (12:28)
[2020-07-07] MEDS ORDERED: Rocuronium Bromide 10 MG/ML (10ML VIAL) ONE (12:28)
[2020-07-07] MEDS: Ketorolac Tromethamine 30 MG/ML VIAL IVP SCH ×2 (15:15→17:58)
[2020-07-07] MEDS: D5 1/2 NS w/20 mEq KCL 1,000 ML IV SCH ×2 (15:34→22:30)
[2020-07-07] MEDS: Famotidine 20 MG TAB PO SCH (22:30)
[2020-07-07] MEDS: Enoxaparin Sodium 40 MG/0.4 ML SYRINGE SC SCH (22:30)
[2020-07-07] MEDS ORDERED: ALBUTEROL SULFATE INH PRN (22:41)
[2020-07-08] MEDS: Ketorolac Tromethamine 30 MG/ML VIAL IVP SCH ×4 (00:26→18:13)
[2020-07-08 07:31] LABS: #Eosinphils 0.1 thou/uL (0.0-0.7); #Lymphocytes 1.5 thou/uL (1.20-3.40); #Monocytes 0.9 thou/uL (0.11-0.59); %Eosinophils 1.6 % (0.0-10.0); %Lymphocytes 17.1 % (21.0-51.0); %Monocytes 11.1 % (0.0-10.0); %Neutrophils 70.3 % (42.0-75.0); Hemoglobin 12.6 g/dL (14.0-18.0); Mean Corpuscular HGB CONC 31.4 g/dL (32.0-36.0); Mean Corpuscular Volume 92.4 fL (78.0-98.0); Mean Platelet Volume 6.6 fL (7.4-10.4); Platelet Count 190 thou/uL (130-400); RBC Distribution Width 12.1 % (11.5-14.5); Red Blood Cell (RBC) Count 4.32 mill/uL (4.70-6.10); White Blood Cell (WBC) Count 8.5 thou/uL (4.8-10.8)
[2020-07-08 07:49] LABS: Anion Gap 11 mmol/L (10-20); BUN (Urea Nitrogen) 9 mg/dL (8.4-25.7); Calc. Creatinine Clearance 172 mL/min (70-130); Calcium 8.9 mg/dL (7.8-10.44); Carbon Dioxide 30 mmol/L (22-29); Chloride 104 mmol/L (98-107); Glucose 136 mg/dL (70-105); Sodium 141 mmol/L (136-145)
--- NOTE | 2020-07-08 07:52 | PDOC.GSPN ---
Surgery Progress Note: Subj - Subjective Patient reports: no new complaints, feels better, positive flatus Narrative: Mr. Lizarraga is a 55 year old male who is POD1 for open right inguinal hernia repair with mesh, orchiectomy, and omentectomy. Patient stated he was doing ok but that he did not sleep much last night due to being in the hospital. He stated he feels that he has more energy than yesterday. He endorsed generalized "stomach" pain rated as a 4 out of 10. Patient has been able to ambulate without difficulty and moved to hospital chair. He stated she was able to pass flatulence, but denied any bowel movements. He had no difficulty with urination. He denied fever or chills. He endorsed coughing associated with his asthma, but stated his "breathing treatment" last night was helpful. He has been tolerating ice chips and denied nausea or vomiting. Overall, he stated he has more energy than he had yesterday. Surgery Progress Note: Obj - Vital signs Vital signs: Vital Signs - Most Recent Temp Pulse Resp BP Pulse Ox 98.3 F 90 18 151/81 H 94 L 07/08/20 07:42 07/08/20 07:42 07/08/20 07:42 07/08/20 07:42 07/08/20 07:42 - Physical Exam General: no distress, well nourished Neck: no lymphadectomy Cardiovascular: regular rate and rhythm Respiratory: normal respiratory effort, breath sounds present, wheezing Abdomen: soft, non tender, positive bowel sounds Psychiatric: oriented to time, oriented to person, oriented to place Wound: dressing clean,dry,intact Surgery Progress Note: Results - Labs Result Diagrams: 07/08/20 07:17 Lab results: Laboratory Results - last 12 hr 07/08/20 07:17 WBC 8.5 RBC 4.32 L Hgb 12.6 L Hct 39.9 L MCV 92.4 MCH 29.0 MCHC 31.4 L RDW 12.1 Plt Count 190 MPV 6.6 L Neutrophils % 70.3 Lymphocytes % 17.1 L Monocytes % 11.1 H Eosinophils % 1.6 Basophils % 0.0 Neutrophils # 6.0 Lymphocytes # 1.5 Monocytes # 0.9 H Eosinophils # 0.1 Basophils # 0.0 Surgery Progress Note: A/P - Plan Plan: Mr. Lizarraga is a 55 year old male who is POD1 for open right inguinal hernia repair with mesh, orchiectomy, and omentectomy. Overall, patient is recovering well and does not appear to be in any acute distress. -continue patient on DVT prophylaxis: SCDs and lovenox -continue patient on walking program: encourage ambulation -manage patient's pain with toradol (scheduled) and morphine (PRN) -continue to allow patient ice chips, sips of water, and water with ,edication -slowly progress patient's diet, consider TPN if unable to tolerate liquids PO -monitor for vomitus
[2020-07-08] MEDS: Hydrochlorothiazide 25 MG TAB PO SCH (10:13)
[2020-07-08] MEDS: D5 1/2 NS w/20 mEq KCL 1,000 ML IV SCH ×3 (10:14→15:44)
[2020-07-08] MEDS: Famotidine 20 MG TAB PO SCH ×2 (10:16→21:18)
[2020-07-08] MEDS ORDERED: traMADol HCl 50 MG TAB PO PRN ×2 (14:03)
[2020-07-08] MEDS: Enoxaparin Sodium 40 MG/0.4 ML SYRINGE SC SCH (21:18)
[2020-07-09 05:30] LABS: #Eosinphils 0.5 thou/uL (0.0-0.7); #Lymphocytes 1.4 thou/uL (1.20-3.40); #Monocytes 0.9 thou/uL (0.11-0.59); #Neutrophils 4.9 thou/uL (1.40-6.50); %Basophils 0.2 % (0.0-1.0); %Eosinophils 5.8 % (0.0-10.0); %Lymphocytes 18.6 % (21.0-51.0); %Monocytes 11.9 % (0.0-10.0); %Neutrophils 63.5 % (42.0-75.0); Hemoglobin 11.6 g/dL (14.0-18.0); Mean Corpuscular HGB CONC 31.5 g/dL (32.0-36.0); Mean Corpuscular Hemoglobin 28.7 pg (27.0-31.0); Mean Platelet Volume 7.4 fL (7.4-10.4); Platelet Count 160 thou/uL (130-400); Red Blood Cell (RBC) Count 4.05 mill/uL (4.70-6.10); White Blood Cell (WBC) Count 7.8 thou/uL (4.8-10.8)
[2020-07-09] MEDS: D5 1/2 NS w/20 mEq KCL 1,000 ML IV SCH (05:47)
[2020-07-09] MEDS: Ketorolac Tromethamine 30 MG/ML VIAL IVP SCH ×2 (05:48)
[2020-07-09 05:53] LABS: Anion Gap 11 mmol/L (10-20); BUN (Urea Nitrogen) 6 mg/dL (8.4-25.7); Calc. Creatinine Clearance 189 mL/min (70-130); Calcium 8.8 mg/dL (7.8-10.44); Carbon Dioxide 28 mmol/L (22-29); Chloride 105 mmol/L (98-107); Glucose 116 mg/dL (70-105); Potassium 4.1 mmol/L (3.5-5.1); Sodium 140 mmol/L (136-145)
[2020-07-09 07:51] VITALS: BP 144/76; TEMP 98.7
[2020-07-09] MEDS: Famotidine 20 MG TAB PO SCH (08:29)
[2020-07-09] MEDS: Hydrochlorothiazide 25 MG TAB PO SCH (08:29)
--- NOTE | 2020-07-10 13:37 | OP ---
DATE OF PROCEDURE: 07/07/2020 PREOPERATIVE DIAGNOSIS: Enormous incarcerated right inguinal hernia with concern for loss of domain. POSTOPERATIVE DIAGNOSIS: Enormous incarcerated right inguinal hernia with concern for loss of domain. OPERATION PERFORMED: Repair of enormous incarcerated right inguinal hernia with mesh, omentectomy, right orchiectomy (this was also a sliding inguinal hernia). ANESTHESIA: General endotracheal. INDICATIONS: The patient is a 55-year-old black male with an enormous right inguinal hernia. This hernia extended more than [facility] down his thigh and was entirely unreducible. At my request, he lost approximately 15 pounds to prepare for this surgery. DESCRIPTION OF OPERATION: Informed consent was obtained. The patient is taken to the operating room, where general endotracheal anesthesia obtained, patient in supine position. His abdomen, groin, scrotum were prepped with Betadine and draped in sterile fashion. Local anesthetic was infiltrated using 0.25% Marcaine with epinephrine. An oblique right inguinal incision was created just above the inguinal ligament. Dissection was carried through skin and subcutaneous tissue. Madeline's fascia was incised and dissection was carried down on to the fascia lateral to the hernia defect. The large hernia was bulging through this area, enlarged external ring. The fascia was incised lateral to the ring, so as to open up the external ring. Additional local anesthetic was infiltrated during the course of dissection. I elevated the external oblique superiorly and inferiorly and turned my attention to the dramatically enlarged spermatic cord and hernia sac. I dissected through the external spermatic fascia down onto the hernia sac, which was opened sharply. I opened transversely across this and began to withdraw hernia contents from the scrotal hernia sac. An extensive amount of small bowel was within the hernia. Preoperative CT scan appeared to be almost the entire small bowel. I then identified the cecum, the right colon, and the transverse colon. Finally, there was a large volume of omentum within the hernia sac. There were some adhesions to the hernia sac that were lysed with electrocautery. Eventually, I was able to remove all contents within the hernia sac. During the course of doing this and extricating the colon, some bleeding occurred within the mesentery of the right colon, probably near the hepatic flexure. I oversewed bleeding vessels with interrupted sutures of 3-0 silk, obtaining complete hemostasis. There was some degree of hematoma within the mesentery. It was noted there were defects within the omentum and in light of my concerns regarding replacement of the contents within the abdomen, I proceeded with an omentectomy, dividing the omentum between clamps and 2-0 silk ties. The omentum was passed off the field as a specimen. I inspected the colon one final time and it still appeared to be entirely viable on the antimesenteric surface. I then attempted initially to replace bowel contents, began with the small bowel. In that fashion, I was unable to reduce the colon. I again removed the small bowel within the peritoneal cavity and began by first reducing the colon, beginning with the transverse colon, followed by the right colon and cecum. Once the cecum was reduced, reduction of the small bowel was relatively easy and I was able to reduce the entire hernia contents back and within the abdomen. I had recognized before surgery that I would not be able to repair the large hernia defect without performing an orchiectomy. I first began by mobilizing the huge hernia sac. As this was being mobilized, the scrotum contents were delivered including the right testicle and the spermatic cord contents. These were passed off the field as a 2nd specimen in addition to the omentum. I then turned my attention to the hernia sac as it emanated from the peritoneum. I closed the peritoneum with a running locking suture of 2-0 Vicryl and excised the redundant hernia sac. During this process, I recognized the testicular artery and vas deferens along the lateral aspect of the hernia sac. This indicated that this was likely originally a direct inguinal hernia. These cord contents were clamped and ligated. The muscular layer of the inguinal floor could not be fully approximated, was extremely medially. I decided therefore to place a large mesh patch as an onlay patch. The preshaped hernia mesh patch was obtained and placed within the inguinal floor. It was secured with a running suture of 2-0 Prolene initially to the pubic tubercle and then along the shelving edge of the inguinal ligament laterally. A 2nd suture of 2-0 Prolene was begun at the pubic tubercle, placed across the arching fibers of the conjoint tendon. This was carried along the entire superior length of the mesh patch also. All tissue which the patch was secured was strong. I then closed the external oblique with a running suture of 3-0 Vicryl. Additional local anesthetic was infiltrated. The remainder of the wound was closed in layers with 3-0 and 4-0 Monocryl. Dermabond was placed externally. There were no complications. Blood loss was estimated at 100 mL. The patient tolerated the procedure well and was taken to recovery room in stable condition. Job ID: [id number]
== END 2020-07-09 12:01 | disposition home or self-care (01) | DRG 352 ==
LOC: SDC 06:04 → T4-A 11:27
PROVIDERS: ADMIT Specialist; ATTEND Specialist
PROC: 0YU50JZ Supplement Right Inguinal Region with Synthetic Substitute, Open Approach (ICD-10-PCS; principal; 2020-07-07)
PROC: 0VB90ZZ Excision of Right Testis, Open Approach (ICD-10-PCS; 2020-07-07)
PROC: 0DBU0ZZ Excision of Omentum, Open Approach (ICD-10-PCS; 2020-07-07)
DX: K40.30 Unilateral inguinal hernia, with obstruction, without gangrene, not specified as recurrent (principal); J44.9 Chronic obstructive pulmonary disease, unspecified; I10 Essential (primary) hypertension; Z79.899 Other long term (current) drug therapy; Z79.51 Long term (current) use of inhaled steroids; Z89.022 Acquired absence of left finger(s); Z87.891 Personal history of nicotine dependence
CPT/HCPCS: 36415; 80048; 85025; 88305; 88307; 88341; 88342; 94640; C1781; J0690; J1100; J1650; J1885; J2310; J2405; J2704; J3010; J3480; J3490; J7620; S0020

== ENCOUNTER 2020-09-08 13:29 | Outpatient (CLI) | payer MEDICARE, MEDICAID ==
--- NOTE | 2020-09-08 13:43 | RAD ---
XR Chest Pa Lat STANDARD HISTORY: Dyspnea COMPARISON: 07/03/2020 FINDINGS: The heart size is normal. The lungs are well expanded without focal areas of consolidation, pneumothorax or pleural effusions. Mild chronic changes again noted. No acute osseous abnormalities are seen. IMPRESSION: No radiographic evidence of acute cardiopulmonary process.
== END 2020-09-08 13:30 | disposition home or self-care (01) ==
LOC: BICRAD 13:29
PROVIDERS: ATTEND Internal Medicine Critical Care Medicine
DX: R06.00 Dyspnea, unspecified (principal)
CPT/HCPCS: 71046

== ENCOUNTER 2021-09-03 09:21 | Outpatient (CLI) | payer MEDICARE, MEDICAID | END 2021-09-03 09:22 | disposition home or self-care (01) | LOC: BICCT 09:21 | PROVIDERS: ATTEND Family Medicine | DX: E83.52 Hypercalcemia (principal); D75.1 Secondary polycythemia; R63.4 Abnormal weight loss; R91.1 Solitary pulmonary nodule; J98.4 Other disorders of lung; J43.9 Emphysema, unspecified; Z87.891 Personal history of nicotine dependence | CPT/HCPCS: 71250 ==

== ENCOUNTER 2021-09-30 08:45 | Outpatient (CLI) | payer MEDICARE, MEDICAID | END 2021-09-30 08:46 | disposition home or self-care (01) | LOC: PET 08:45 | PROVIDERS: ATTEND Internal Medicine Critical Care Medicine | DX: R91.8 Other nonspecific abnormal finding of lung field (principal) | CPT/HCPCS: 78815; A9552 ==

== ENCOUNTER 2022-04-15 09:47 | Outpatient (CLI) | payer OTHER, MEDICAID | END 2022-04-15 09:48 | disposition home or self-care (01) | LOC: BICCT 09:47 | PROVIDERS: ATTEND Internal Medicine Critical Care Medicine | DX: R91.8 Other nonspecific abnormal finding of lung field (principal) | CPT/HCPCS: 71260 ==

== ENCOUNTER 2022-05-23 11:00 | Emergency (ER) | payer MEDICARE, MEDICAID ==
[2022-05-24] MEDS ORDERED: Fentanyl 100 MCG/2 ML VIAL ONE (10:14)
[2022-05-24] MEDS ORDERED: fentaNYL Citrate/PF 100 MCG/2 ML SYRINGE ONE (11:58)
[2022-05-24] MEDS ORDERED: Albumin 5% 500 ML ONE (11:58)
== END 2022-05-23 16:06 | disposition left against medical advice (07) ==
LOC: ERS 11:00
DX: Z53.21 Procedure and treatment not carried out due to patient leaving prior to being seen by health care provider (principal)

== ENCOUNTER 2023-07-08 23:34 | Inpatient (IN) | payer MEDICARE ==
[2023-07-09 00:25] LABS: #Eosinphils 1.2 thou/uL (0.0-0.7); #Monocytes 0.9 thou/uL (0.11-0.59); #Neutrophils 4.6 thou/uL (1.40-6.50); %Basophils 0.5 % (0.0-1.0); %Eosinophils 14.1 % (0.0-10.0); %Lymphocytes 20.3 % (21.0-51.0); %Monocytes 10.2 % (0.0-10.0); %Neutrophils 54.4 % (42.0-75.0); Hematocrit 50.6 % (42.0-52.0); Hemoglobin 15.7 g/dL (14.0-18.0); Mean Corpuscular Hemoglobin 27.9 pg (27.0-31.0); Mean Corpuscular Volume 89.9 fl (78.0-98.0); Mean Platelet Volume 8.9 fL (7.4-10.4); Platelet Count 263 10x3/uL (130-400); RBC Distribution Width 14.4 % (11.5-14.5); Red Blood Cell (RBC) Count 5.63 mill/uL (4.70-6.10); White Blood Cell (WBC) Count 8.4 10x3/uL (4.8-10.8)
[2023-07-09 00:49] LABS: ALT (SGPT) 87 U/L (8-55); AST (SGOT) 49 U/L (5-34); Albumin 4.1 g/dL (3.5-5.0); Alkaline Phosphatase 84 U/L (40-110); Anion Gap 15 mmol/L (10-20); BUN (Urea Nitrogen) 12 mg/dL (8.4-25.7); Bilirubin, Total 0.2 mg/dL (0.2-1.2); Calc. Creatinine Clearance 0 mL/min (70-130); Calcium 9.9 mg/dL (7.8-10.44); Carbon Dioxide 29 mmol/L (22-29); Chloride 99 mmol/L (98-107); Estimated GFR 106; Globulin 2.9 g/dL (2.4-3.5); Glucose 135 mg/dL (70-105); Lipase 14 U/L (8-78); Magnesium 2.2 mg/dL (1.6-2.6); Potassium 4.9 mmol/L (3.5-5.1); Sodium 138 mmol/L (136-145)
[2023-07-09 00:53] LABS: Troponin I Less than 0.010 ng/mL (< 0.028)
[2023-07-09] MEDS ORDERED: methylPREDNISolone Sod Succ/PF 125 MG/2 ML VIAL ONE (01:13)
[2023-07-09] MEDS ORDERED: Ipratropium/Albuterol 3 ML NEB ONE ×2 (01:43→03:19)
[2023-07-09] MEDS ORDERED: cefTRIAXone (ROCEPHIN) 1 GM VIAL ONE (01:43)
[2023-07-09] MEDS ORDERED: Sodium Chloride 0.9% 100 ML ONE (01:43)
[2023-07-09 03:42] LABS: SARS-CoV-2 NAA Rapid Test Not Detected (NotDetected)
[2023-07-09] MEDS ORDERED: Azithromycin 500 MG VIAL ONE (03:58)
[2023-07-09 04:16] LABS: Troponin I Less than 0.010 ng/mL (< 0.028)
[2023-07-09] MEDS ORDERED: Ipratropium/Albuterol 3 ML NEB NEB PRN (06:17)
[2023-07-09] MEDS ORDERED: Acetaminophen 325 MG TAB PO PRN (06:17)
[2023-07-09] MEDS ORDERED: Electrolyte Replacement Protocol 1 EACH FS SCH (06:30)
[2023-07-09] MEDS ORDERED: Non-Formulary Item 1 EACH (Tiotropium Bromide 4 GM Inhaler) IH SCH (09:00)
[2023-07-09] MEDS: Thiamine HCl 200 MG/2 ML VIAL SLOW IVP SCH (09:42)
[2023-07-09] MEDS: Folic Acid 1 MG TAB PO SCH (09:43)
[2023-07-09] MEDS: Multivit, Therapeutic 1 TAB PO SCH (09:43)
[2023-07-09] MEDS: Hydrochlorothiazide 25 MG TAB PO SCH (09:43)
[2023-07-09 11:01] VITALS: BMI 27.3
[2023-07-09] MEDS: Ipratropium/Albuterol 3 ML NEB NEB SCH ×5 (11:06→22:11)
[2023-07-09] MEDS: Mometasone 200 MCG/Formoterol 5 MCG 120 PUFF INHALER INH SCH ×2 (11:07→19:23)
[2023-07-09] MEDS ORDERED: Electrolyte Replacement Protocol FS PRN (13:15)
[2023-07-10] MEDS: Ipratropium/Albuterol 3 ML NEB NEB SCH ×6 (02:50→22:33)
[2023-07-10 06:02] LABS: #Eosinphils 0.5 thou/uL (0.0-0.7); #Monocytes 0.9 thou/uL (0.11-0.59); %Basophils 0.5 % (0.0-1.0); %Eosinophils 6.5 % (0.0-10.0); %Lymphocytes 18.6 % (21.0-51.0); %Monocytes 11.3 % (0.0-10.0); %Neutrophils 62.6 % (42.0-75.0); Hematocrit 49.9 % (42.0-52.0); Hemoglobin 15.5 g/dL (14.0-18.0); Mean Corpuscular HGB CONC 31.1 g/dL (32.0-36.0); Mean Corpuscular Hemoglobin 27.5 pg (27.0-31.0); Mean Corpuscular Volume 88.5 fl (78.0-98.0); Mean Platelet Volume 9.2 fL (7.4-10.4); Platelet Count 260 10x3/uL (130-400); RBC Distribution Width 14.6 % (11.5-14.5); Red Blood Cell (RBC) Count 5.64 mill/uL (4.70-6.10)
[2023-07-10 06:26] LABS: Phosphorus 3.2 mg/dL (2.3-4.7)
[2023-07-10 06:44] LABS: ALT (SGPT) 68 U/L (8-55); AST (SGOT) 38 U/L (5-34); Albumin 3.7 g/dL (3.5-5.0); Alkaline Phosphatase 71 U/L (40-110); Anion Gap 15 mmol/L (10-20); BUN (Urea Nitrogen) 13 mg/dL (8.4-25.7); Bilirubin, Total 0.5 mg/dL (0.2-1.2); Calc. Creatinine Clearance 164 mL/min (70-130); Carbon Dioxide 28 mmol/L (22-29); Chloride 101 mmol/L (98-107); Estimated GFR 113; Globulin 3.5 g/dL (2.4-3.5); Glucose 115 mg/dL (70-105); Magnesium 2.6 mg/dL (1.6-2.6); Potassium 4.2 mmol/L (3.5-5.1); Protein, Total 7.2 g/dL (6.0-8.3); Sodium 140 mmol/L (136-145)
[2023-07-10] MEDS: Mometasone 200 MCG/Formoterol 5 MCG 120 PUFF INHALER INH SCH ×2 (08:02→18:43)
[2023-07-10] MEDS: predniSONE 20 MG TAB PO SCH (08:37)
[2023-07-10] MEDS: cefTRIAXone\\ROCEPHIN 1 GM in Sodium Chloride 0.9% 100 ML IVPB SCH (08:38)
[2023-07-10] MEDS: Azithromycin 250 MG TAB PO SCH (08:38)
[2023-07-10] MEDS: Thiamine HCl 200 MG/2 ML VIAL SLOW IVP SCH (08:38)
[2023-07-10] MEDS: Folic Acid 1 MG TAB PO SCH (08:38)
[2023-07-10] MEDS: Multivit, Therapeutic 1 TAB PO SCH (08:38)
[2023-07-10] MEDS: Hydrochlorothiazide 25 MG TAB PO SCH (08:38)
[2023-07-11] MEDS: Ipratropium/Albuterol 3 ML NEB NEB SCH ×2 (02:04→08:27)
[2023-07-11 05:37] LABS: #Eosinphils 0.6 thou/uL (0.0-0.7); #Monocytes 0.9 thou/uL (0.11-0.59); #Neutrophils 4.1 thou/uL (1.40-6.50); %Basophils 0.5 % (0.0-1.0); %Eosinophils 8.2 % (0.0-10.0); %Lymphocytes 24.3 % (21.0-51.0); %Monocytes 11.8 % (0.0-10.0); %Neutrophils 54.8 % (42.0-75.0); Hematocrit 49.8 % (42.0-52.0); Hemoglobin 15.5 g/dL (14.0-18.0); Mean Corpuscular HGB CONC 31.1 g/dL (32.0-36.0); Mean Corpuscular Hemoglobin 27.8 pg (27.0-31.0); Mean Corpuscular Volume 89.2 fl (78.0-98.0); Mean Platelet Volume 9.1 fL (7.4-10.4); Platelet Count 257 10x3/uL (130-400); RBC Distribution Width 14.6 % (11.5-14.5); Red Blood Cell (RBC) Count 5.58 mill/uL (4.70-6.10); White Blood Cell (WBC) Count 7.4 10x3/uL (4.8-10.8)
[2023-07-11 06:13] LABS: ALT (SGPT) 65 U/L (8-55); AST (SGOT) 27 U/L (5-34); Albumin 3.6 g/dL (3.5-5.0); Alkaline Phosphatase 72 U/L (40-110); Anion Gap 14 mmol/L (10-20); BUN (Urea Nitrogen) 15 mg/dL (8.4-25.7); Bilirubin, Total 0.6 mg/dL (0.2-1.2); Calc. Creatinine Clearance 151 mL/min (70-130); Calcium 10.1 mg/dL (7.8-10.44); Carbon Dioxide 31 mmol/L (22-29); Chloride 99 mmol/L (98-107); Estimated GFR 110; Glucose 104 mg/dL (70-105); Potassium 4.2 mmol/L (3.5-5.1); Protein, Total 6.6 g/dL (6.0-8.3); Sodium 140 mmol/L (136-145)
[2023-07-11] MEDS: Mometasone 200 MCG/Formoterol 5 MCG 120 PUFF INHALER INH SCH (08:28)
[2023-07-11] MEDS: predniSONE 20 MG TAB PO SCH (08:30)
[2023-07-11] MEDS: Azithromycin 250 MG TAB PO SCH (08:30)
[2023-07-11] MEDS: cefTRIAXone\\ROCEPHIN 1 GM in Sodium Chloride 0.9% 100 ML IVPB SCH (08:30)
[2023-07-11] MEDS: Thiamine HCl 200 MG/2 ML VIAL SLOW IVP SCH (08:30)
[2023-07-11] MEDS: Multivit, Therapeutic 1 TAB PO SCH (08:30)
[2023-07-11] MEDS: Folic Acid 1 MG TAB PO SCH (08:30)
[2023-07-11] MEDS: Hydrochlorothiazide 25 MG TAB PO SCH (08:30)
[2023-07-11 12:00] VITALS: BP 139/84; TEMP 97.9
[2023-07-12] MEDS ORDERED: Thiamine 100 MG TAB PO SCH (09:00)
== END 2023-07-11 11:50 | disposition home or self-care (01) | DRG 193 ==
LOC: ERS 23:34 → SURG A 07-09 05:58 → OBSVTOIN 07-10 14:38
PROVIDERS: ADMIT Family Medicine; ATTEND Family Medicine
DX: J18.9 Pneumonia, unspecified organism (principal); J96.21 Acute and chronic respiratory failure with hypoxia; J44.1 Chronic obstructive pulmonary disease with (acute) exacerbation; J44.0 Chronic obstructive pulmonary disease with (acute) lower respiratory infection; F10.10 Alcohol abuse, uncomplicated; I10 Essential (primary) hypertension; Z79.899 Other long term (current) drug therapy; Z87.891 Personal history of nicotine dependence; Z11.52 Encounter for screening for COVID-19
CPT/HCPCS: 36415; 71045; 71046; 80053; 83690; 83735; 83880; 84100; 84484; 85025; 93005; 94640; 94644; 96365; 96367; 96372; 96375; 96376; G0378; J0456; J0696; J1650; J2930; J3411; J3490; J7512; J7611; J7620

== ENCOUNTER 2024-07-24 08:08 | Observation (INO) | payer MEDICARE ==
[2024-07-24] MEDS ORDERED: Ipratropium/Albuterol 3 ML NEB ONE (08:29)
[2024-07-24 08:42] LABS: Actual Bicarbonate (HCO3v) 33.1 mEq/L (22-28); Analyzer IN Cardio ER; Base Excess 4.7 mEq/L (-2.0 to +3.0); Calcium, Ionized (venous) 1.25 mmol/L (1.16-1.32); Chloride (VBG) 100 mmol/L (98-106); Hematocrit-VBG 52 % (42.0-52.0); Hemoglobin (Hb) 17.8 g/dL (13.1-17.2); Potassium (VBG) 4.76 mmol/L (3.70-5.30); Sodium 143 mmol/L (133-146)
[2024-07-24 08:51] LABS: #Basophils 0.04 10x3/uL (0.0-0.2); %Basophils 0.7 % (0.0-1.0); %Eosinophils 14.4 % (0.0-10.0); %Lymphocytes 21.1 % (21.0-51.0); %Monocytes 13.6 % (0.0-10.0); %Neutrophils 49.7 % (42.0-75.0); Hematocrit 51.3 % (42.0-52.0); Hemoglobin 16.4 g/dL (14.0-18.0); Mean Corpuscular Hemoglobin 28.6 pg (27.0-31.0); Mean Corpuscular Volume 89.4 fL (78.0-98.0); Mean Platelet Volume 8.7 fL (7.4-10.4); Platelet Count 261 10x3/uL (130-400); RBC Distribution Width 13.5 % (11.5-14.5); Red Blood Cell (RBC) Count 5.74 mill/uL (4.70-6.10)
[2024-07-24] MEDS ORDERED: methylPREDNISolone Sod Succ/PF 125 MG/2 ML VIAL ONE (09:05)
[2024-07-24] MEDS ORDERED: Magnesium 2 GM/50 ML BAG (IN WATER) ONE (09:05)
[2024-07-24 09:07] LABS: ALT (SGPT) 47 U/L (8-55); AST (SGOT) 38 U/L (5-34); Albumin 3.8 g/dL (3.5-5.0); Alkaline Phosphatase 73 U/L (40-110); Anion Gap 14 mmol/L (10-20); BUN (Urea Nitrogen) 12 mg/dL (8.4-25.7); Bilirubin, Total 0.3 mg/dL (0.2-1.2); Calc. Creatinine Clearance 0 mL/min (70-130); Calcium 10.4 mg/dL (7.8-10.44); Carbon Dioxide 28 mmol/L (22-29); Chloride 104 mmol/L (98-107); Estimated GFR 112; Globulin 3.4 g/dL (2.4-3.5); Glucose 118 mg/dL (70-105); Potassium 4.4 mmol/L (3.5-5.1); Protein, Total 7.2 g/dL (6.0-8.3); Sodium 142 mmol/L (136-145)
[2024-07-24 09:12] LABS: Troponin I Less than 0.010 ng/mL (< 0.028)
[2024-07-24] MEDS ORDERED: Sodium Chloride 0.9% 100 ML ONE (09:34)
[2024-07-24] MEDS ORDERED: cefTRIAXone (ROCEPHIN) 2 GM VIAL ONE (09:34)
[2024-07-24] MEDS ORDERED: Iopamidol-370 76% 500 ML MDV (1 ML CHARGE) ONE (10:01)
[2024-07-24] MEDS ORDERED: Azithromycin 500 MG VIAL ONE (10:14)
[2024-07-24] MEDS ORDERED: Acetaminophen 325 MG TAB PO PRN (16:29)
[2024-07-24] MEDS ORDERED: Ondansetron ODT 4 MG TAB PO PRN (16:29)
[2024-07-24] MEDS ORDERED: Albuterol 2.5 MG (3 mL) NEB NEB PRN (16:29)
[2024-07-24] MEDS ORDERED: Ondansetron PF 4 MG/2 ML Vial IVP PRN (16:29)
[2024-07-24] MEDS ORDERED: Acetaminophen 650 MG Suppository PR PRN (16:29)
[2024-07-24 18:32] VITALS: BMI 24.0
[2024-07-24] MEDS: methylPREDNISolone Sod Succ 40 MG VIAL IVP SCH (18:50)
[2024-07-24] MEDS: Ipratropium/Albuterol 3 ML NEB NEB SCH (20:40)
[2024-07-25 05:37] LABS: #Basophils Less than 0.03 10x3/uL (0.0-0.2); #Eosinophils Less than 0.03 10x3/uL (0.0-0.7); %Basophils 0.4 % (0.0-1.0); %Lymphocytes 14.2 % (21.0-51.0); %Monocytes 5.5 % (0.0-10.0); %Neutrophils 79.2 % (42.0-75.0); Hematocrit 50.8 % (42.0-52.0); Hemoglobin 15.9 g/dL (14.0-18.0); Mean Corpuscular HGB CONC 31.3 g/dL (32.0-36.0); Mean Corpuscular Hemoglobin 27.7 pg (27.0-31.0); Mean Corpuscular Volume 88.5 fL (78.0-98.0); Mean Platelet Volume 8.9 fL (7.4-10.4); Platelet Count 258 10x3/uL (130-400); RBC Distribution Width 13.4 % (11.5-14.5); Red Blood Cell (RBC) Count 5.74 mill/uL (4.70-6.10)
[2024-07-25 05:42] LABS: Anion Gap 12 mmol/L (10-20); BUN (Urea Nitrogen) 12 mg/dL (8.4-25.7); Calc. Creatinine Clearance 156 mL/min (70-130); Calcium 9.9 mg/dL (7.8-10.44); Carbon Dioxide 31 mmol/L (22-29); Chloride 103 mmol/L (98-107); Estimated GFR 116; Glucose 163 mg/dL (70-105); Potassium 4.3 mmol/L (3.5-5.1); Sodium 142 mmol/L (136-145)
[2024-07-25] MEDS: cefTRIAXone\\ROCEPHIN 1 GM in Sodium Chloride 0.9% 100 ML IVPB SCH (09:35)
[2024-07-25] MEDS: Azithromycin 500 MG in Sodium Chloride 0.9% 250 ML 250 ML IVPB SCH (11:25)
[2024-07-25 15:44] VITALS: BP 164/77; TEMP 98
[2024-07-27] MEDS ORDERED: FLU (Fluarix Triv) TS24-25(6MOS UP)/PF 45 MCG/0.5 ML Syringe IM ONE (19:45)
== END 2024-07-25 16:42 | disposition home or self-care (01) ==
LOC: ERS 08:08 → ERHOLD 11:00 → OBS 16:44
PROVIDERS: ADMIT Internal Medicine; ATTEND Internal Medicine
DX: J44.1 Chronic obstructive pulmonary disease with (acute) exacerbation (principal); J96.21 Acute and chronic respiratory failure with hypoxia; I10 Essential (primary) hypertension; F12.90 Cannabis use, unspecified, uncomplicated; Z99.81 Dependence on supplemental oxygen; Z87.891 Personal history of nicotine dependence; Z98.890 Other specified postprocedural states; Z79.51 Long term (current) use of inhaled steroids; Z79.2 Long term (current) use of antibiotics; Z79.899 Other long term (current) drug therapy
CPT/HCPCS: 71045; 71275; 80048; 80053; 82805; 83605; 83880; 84484; 85025 ×2; 87040; 87428; 93005; 94640 ×2; 94760; 96376 ×2; G0378 ×3; J0456 ×2; J0696 ×2; J2919 ×3; J3475; J7050; Q9967; 36415; J7620

== ENCOUNTER 2025-05-09 11:27 | Outpatient (CLI) | payer MEDICARE, OTHER | END 2025-05-09 11:28 | disposition home or self-care (01) | LOC: RAD 11:27 | PROVIDERS: ATTEND Internal Medicine Critical Care Medicine | DX: R06.00 Dyspnea, unspecified (principal) | CPT/HCPCS: 71046 ==